=== PATIENT | female | born 1945 | race Caucasian/White ===

== ENCOUNTER → 2018-08-30 | Outpatient (CLI) | payer MEDICARE, OTHER ==
--- NOTE | 2018-08-30 14:42 | XR ---
EXAMINATION TYPE: XR chest 2V DATE OF EXAM: 08/30/2018 COMPARISON: Prior chest x-ray 12/07/2017 HISTORY: Shortness of breath, history of lung nodule, colon carcinoma TECHNIQUE: Frontal and lateral views of the chest are obtained. FINDINGS: Prominent lung volumes with lucency at the apices suggest underlying COPD, possible emphys mer. Right-sided Port-A-Cath is present with the right jugular approach with the distal tip overlying superior vena cava. There is a gentle spinal curvature present. No evident pneumothorax or pleural e ffusion. Cardiac mediastinal silhouette, pulmonary vascularity and nelida are stable. Lung nodule super imposed over the spine on the lateral view is noted measuring approximately 2.4 cm not seen definitiv ling on prior exam. Suspect coronary artery calcifications are present. There is osteopenia. Interstit ial changes are present at the lung bases. IMPRESSION: Indeterminate lung nodule, CT chest could be performed for additional evaluation. Suspec t underlying COPD, coronary artery disease. Additional findings above.
== END | disposition home or self-care (01) ==
LOC: RADXRMAIN 13:07
PROVIDERS: ATTEND Internal Medicine Hematology & Oncology
DX: R91.8 Other nonspecific abnormal finding of lung field (principal); C18.2 Malignant neoplasm of ascending colon; G62.0 Drug-induced polyneuropathy; D64.81 Anemia due to antineoplastic chemotherapy
CPT/HCPCS: 71046

== ENCOUNTER 2019-04-04 09:08 | Inpatient (IN) | payer MEDICARE, OTHER ==
[2019-04-04] MEDS ORDERED: SODIUM CHLORIDE 0.9% 1,000 ML IV STA ×2 (09:54)
--- NOTE | 2019-04-04 09:58 | ED ---
Weakness HPI - General Chief complaint: Weakness Stated complaint: nausea, weakness Time Seen by Provider: 04/04/19 09:33 Source: patient, family, RN notes reviewed Mode of arrival: wheelchair Limitations: no limitations - History of Present Illness Initial comments: This is a 73-year-old female with a history of cancer who is on oral chemotherapy who also has a history of bowel resection with diarrhea who presents with complains of generalized weakness and started or days ago during a trip to [place] CPR did not eat or drink very much that she would have diarrhea she is still having diarrhea 2 brought here because of some weakness and some disorientation this morning. Difficulty walking also. No reports of fevers chills sweats when nausea or vomiting just the diarrhea also she does complain of generalized weakness she was noted upon arrival he was blood pressure 70/47. She reports no headaches or chest pain. MD Complaint: generalized weakness - Related Data Home Medications Medication Instructions Recorded Confirmed Capecitabine [Xeloda] 1,500 mg PO DIRECTED 04/04/19 04/04/19 Diphenox-Atrop 2.5-0.025 mg 1 tab PO QID PRN 04/04/19 04/04/19 [Lomotil] Lidocaine-Prilocaine Cream [Emla 1 applic TOPICAL DIRECTED PRN 04/04/19 04/04/19 Cream 2.5%/2.5%] Lisinopril 40 mg PO DAILY 04/04/19 04/04/19 Prochlorperazine [Compazine] 10 mg PO Q6H PRN 04/04/19 04/04/19 carBAMazepine [TEGretol] 200 mg PO TID 04/04/19 04/04/19 levETIRAcetam [Keppra] 250 mg PO BID 04/04/19 04/04/19 levETIRAcetam [Keppra] 500 mg PO BID 04/04/19 04/04/19 Allergies Allergy/AdvReac Type Severity Reaction Status Date / Time No Known Allergies Allergy Verified 04/04/19 09:55 Review of Systems ROS Statement: Those systems with pertinent positive or pertinent negative responses have been documented in the HPI. ROS Other: All systems not noted in ROS Statement are negative. 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 History of Any Multi-Drug Resistant Organisms: None Reported Past Surgical History: Bowel Resection, Cholecystectomy Past Psychological History: Depression Smoking Status: Former smoker Past Alcohol Use History: None Reported Past Drug Use History: None Reported General Exam - General Exam Comments Initial Comments: This is a well-developed sec appearing female who is awake alert oriented 3 per family she is of normal coloration Limitations: no limitations General appearance: alert, in no apparent distress Head exam: Present: atraumatic, normocephalic, normal inspection Eye exam: Present: normal appearance, PERRL, EOMI. Absent: scleral icterus, conjunctival injection, periorbital swelling ENT exam: Present: mucous membranes dry Neck exam: Present: normal inspection, full ROM, other (No stridor JVD or bruits). Absent: tenderness, meningismus, lymphadenopathy Respiratory exam: Present: normal lung sounds bilaterally. Absent: respiratory distress, wheezes, rales, rhonchi, stridor Cardiovascular Exam: Present: normal rhythm, tachycardia, normal heart sounds. Absent: systolic murmur, diastolic murmur, rubs, gallop, clicks GI/Abdominal exam: Present: soft, normal bowel sounds. Absent: distended, tend erness, guarding, rebound, rigid Extremities exam: Present: normal inspection, full ROM, normal capillary refill. Absent: tenderness, pedal edema, joint swelling, calf tenderness Back exam: Present: normal inspection Neurological exam: Present: alert, oriented X3, CN II-XII intact Psychiatric exam: Present: normal affect, normal mood Skin exam: Present: warm, dry, intact, normal color. Absent: rash Course Vital Signs 04/04/19 04/04/19 04/04/19 09:09 09:25 09:30 Temperature 97.6 F Pulse Rate 111 H 94 Pulse Rate [ Sitting] Pulse Rate [ Standing] Pulse Rate [ Supine] Respiratory 16 18 Rate Blood Pressure 42/34 95/76 Blood Pressure [Sitting] Blood Pressure [Standing] Blood Pressure [Supine] O2 Sat by Pulse 95 96 96 Oximetry 04/04/19 04/04/19 04/04/19 09:37 09:48 10:00 Temperature Pulse Rate 77 75 75 Pulse Rate [ Sitting] Pulse Rate [ Standing] Pulse Rate [ Supine] Respiratory 16 20 18 Rate Blood Pressure 78/47 88/28 98/49 Blood Pressure [Sitting] Blood Pressure [Standing] Blood Pressure [Supine] O2 Sat by Pulse 96 96 96 Oximetry 04/04/19 04/04/19 04/04/19 10:01 10:30 11:00 Temperature Pulse Rate 75 75 Pulse Rate [ Sitting] Pulse Rate [ Standing] Pulse Rate [ Supine] Respiratory 18 18 Rate Blood Pressure 88/46 101/44 94/48 Blood Pressure [Sitting] Blood Pressure [Standing] Blood Pressure [Supine] O2 Sat by Pulse 96 96 Oximetry 04/04/19 04/04/19 04/04/19 12:00 12:15 12:21 Temperature Pulse Rate 76 79 Pulse Rate [ 84 Sitting] Pulse Rate [ 102 H Standing] Pulse Rate [ 77 Supine] Respiratory 22 20 20 Rate Blood Pressure 86/40 101/47 Blood Pressure 90/50 [Sitting] Blood Pressure 83/28 [Standing] Blood Pressure 102/51 [Supine] O2 Sat by Pulse 97 97 Oximetry 04/04/19 04/04/19 12:45 13:15 Temperature Pulse Rate 83 88 Pulse Rate [ Sitting] Pulse Rate [ Standing] Pulse Rate [ Supine] Respiratory 20 20 Rate Blood Pressure 92/54 83/40 Blood Pressure [Sitting] Blood Pressure [Standing] Blood Pressure [Supine] O2 Sat by Pulse 99 96 Oximetry - Reevaluation(s) Reevaluation #1: 04/04/19 13:41 I did reevaluate the patient multiple occasions she is feeling improved after IV hydration she did however did not tolerate orthostatic testing very well he was later found to have urinary tract infection she will be admitted I did discuss the case the patient and with her family members were present. Patient is admitted to Dr. Champion. Medical Decision Making - Lab Data Result diagrams: 04/04/19 09:35 04/04/19 09:35 Lab Results 04/04/19 04/04/19 04/04/19 Range/Units 09:35 09:35 09:35 WBC 6.3 (3.8-10.6) k/uL RBC 4.13 (3.80-5.40) m/uL Hgb 13.5 (11.4-16.0) gm/dL Hct 41.5 (34.0-46.0) % MCV 100.5 H (80.0-100.0) fL MCH 32.6 (25.0-35.0) pg MCHC 32.4 (31.0-37.0) g/dL RDW 16.2 H (11.5-15.5) % Plt Count 145 L (150-450) k/uL Neutrophils % (Manual) 41 % Band Neutrophils % 10 % Lymphocytes % (Manual) 30 % Monocytes % (Manual) 18 % Metamyelocytes % 1 % Neutrophils # (Manual) 3.20 (1.3-7.7) k/uL Lymphocytes # (Manual) 1.89 (1.0-4.8) k/uL Monocytes # (Manual) 1.13 H (0-1.0) k/uL Metamyelocytes # (Man) 0.06 H (0) k/uL Nucleated RBCs 0 (0-0) /100 WBC Differential Comment Manual Slide Review Performed Anisocytosis Slight Macrocytosis Slight Ovalocytes Present Sodium 141 (137-145) mmol/L Potassium 3.8 (3.5-5.1) mmol/L Chloride 115 H (98-107) mmol/L Carbon Dioxide 12 L (22-30) mmol/L Anion Gap 14 mmol/L BUN 58 H (7-17) mg/dL Creatinine 1.85 H (0.52-1.04) mg/dL Est GFR (CKD-EPI)AfAm 31 (>60 ml/min/1.73 sqM) Est GFR (CKD-EPI)NonAf 27 (>60 ml/min/1.73 sqM) Glucose 177 H (74-99) mg/dL Lactic Ac Sepsis Rflx Plasma Lactic Acid Sven 2.6 H* (0.7-2.0) mmol/L Calcium 9.0 (8.4-10.2) mg/dL Magnesium 1.8 (1.6-2.3) mg/dL Total Bilirubin 0.6 (0.2-1.3) mg/dL AST 73 H (14-36) U/L ALT 53 H (9-52) U/L Alkaline Phosphatase 95 (38-126) U/L Creatine Kinase 35 (30-135) U/L Total Protein 6.3 (6.3-8.2) g/dL Albumin 3.8 (3.5-5.0) g/dL Lipase 57 (23-300) U/L Urine Color Urine Appearance (Clear) Urine pH (5.0-8.0) Ur Specific [place] (1.001-1.035) Urine Protein (Negative) Urine Glucose (UA) (Negative) Urine Ketones (Negative) Urine Blood (Negative) Urine Nitrite (Negative) Urine Bilirubin (Negative) Urine Urobilinogen (<2.0) mg/dL Ur Leukocyte Esterase (Negative) Urine WBC (0-5) /hpf Urine WBC Clumps (None) /hpf Amorphous Sediment (None) /hpf Urine Bacteria (None) /hpf Urine Mucus (None) /hpf 04/04/19 04/04/19 Range/Units 09:35 10:31 WBC (3.8-10.6) k/uL RBC (3.80-5.40) m/uL Hgb (11.4-16.0) gm/dL Hct (34.0-46.0) % MCV (80.0-100.0) fL MCH (25.0-35.0) pg MCHC (31.0-37.0) g/dL RDW (11.5-15.5) % Plt Count (150-450) k/uL Neutrophils % (Manual) % Band Neutrophils % % Lymphocytes % (Manual) % Monocytes % (Manual) % Metamyelocytes % % Neutrophils # (Manual) (1.3-7.7) k/uL Lymphocytes # (Manual) (1.0-4.8) k/uL Monocytes # (Manual) (0-1.0) k/uL Metamyelocytes # (Man) (0) k/uL Nucleated RBCs (0-0) /100 WBC Differential Comment Manual Slide Review Anisocytosis Macrocytosis Ovalocytes Sodium (137-145) mmol/L Potassium (3.5-5.1) mmol/L Chloride (98-107) mmol/L Carbon Dioxide (22-30) mmol/L Anion Gap mmol/L BUN (7-17) mg/dL Creatinine (0.52-1.04) mg/dL Est GFR (CKD-EPI)AfAm (>60 ml/min/1.73 sqM) Est GFR (CKD-EPI)NonAf (>60 ml/min/1.73 sqM) Glucose (74-99) mg/dL Lactic Ac Sepsis Rflx Y Plasma Lactic Acid Sven (0.7-2.0) mmol/L Calcium (8.4-10.2) mg/dL Magnesium (1.6-2.3) mg/dL Total Bilirubin (0.2-1.3) mg/dL AST (14-36) U/L ALT (9-52) U/L Alkaline Phosphatase (38-126) U/L Creatine Kinase (30-135) U/L Total Protein (6.3-8.2) g/dL Albumin (3.5-5.0) g/dL Lipase (23-300) U/L Urine Color Yellow Urine Appearance Cloudy H (Clear) Urine pH 5.5 (5.0-8.0) Ur Specific [place] 1.016 (1.001-1.035) Urine Protein 1+ H (Negative) Urine Glucose (UA) Negative (Negative) Urine Ketones Negative (Negative) Urine Blood Negative (Negative) Urine Nitrite Positive H (Negative) Urine Bilirubin Negative (Negative) Urine Urobilinogen <2.0 (<2.0) mg/dL Ur Leukocyte Esterase Moderate H (Negative) Urine WBC 12 H (0-5) /hpf Urine WBC Clumps Occasional H (None) /hpf Amorphous Sediment Occasional H (None) /hpf Urine Bacteria Moderate H (None) /hpf Urine Mucus Rare H (None) /hpf Disposition Clinical Impression: Urinary tract infection, Dehydration, Hypotensive episode, Chronic diarrhea Disposition: ADMITTED IP TO THIS HOSP Condition: Fair Referrals: Rama Muñiz MD [Primary Care Provider] - 1-2 days
[2019-04-04 10:26] LABS: Albumin 3.8 g/dL (3.5-5.0); Magnesium 1.8 mg/dL (1.6-2.3); Potassium 3.8 mmol/L (3.5-5.1); Total Bilirubin 0.6 mg/dL (0.2-1.3); Total Protein 6.3 g/dL (6.3-8.2)
[2019-04-04 10:37] LABS: Anisocytosis Slight; HCT 41.5 % (34.0-46.0); HGB 13.5 gm/dL (11.4-16.0); MCH 32.6 pg (25.0-35.0); MCHC 32.4 g/dL (31.0-37.0); MCV 100.5 fL (80.0-100.0); Macrocytosis Slight; Mean Platelet Volume 7.5; Platelet Count 145 k/uL (150-450); RBC 4.13 m/uL (3.80-5.40); RDW 16.2 % (11.5-15.5); WBC 6.3 k/uL (3.8-10.6)
[2019-04-04 10:45] LABS: Amorphous Sediment,Urine Occasional /hpf; Appearance,Urine Cloudy (Clear); Bacteria,Urine Moderate /hpf; Bilirubin,Urine Negative (Negative); Blood,Urine Negative (Negative); Color,Urine Yellow; Glucose,Urine (UA) Negative (Negative); Ketones,Urine Negative (Negative); Leukocyte Esterase,Urine Moderate (Negative); Mucus,Urine Rare /hpf; Nitrite,Urine Positive (Negative); PH, Urine 5.5 (5.0-8.0); Protein,Urine 1+ (Negative); Specific Gravity,Urine 1.016 (1.001-1.035); Urobilinogen,Urine <2.0 mg/dL (<2.0)
[2019-04-04] MEDS ORDERED: SODIUM CHLORIDE 0.9% 500 ML 500 ML IV STA ×2 (10:53→14:00)
--- NOTE | 2019-04-04 10:57 | CT ---
EXAMINATION TYPE: CT brain wo con DATE OF EXAM: 04/04/2019 COMPARISON: None HISTORY: 73-year-old female Weakness and confusion TECHNIQUE: Examination was done in axial plane without intravenous contrast. Coronal and sagittal r econstructions performed. CT DLP: 1113.4 mGycm Automated exposure control for dose reduction was used. FINDINGS: There is no evidence of acute intracranial hemorrhage, acute ischemic changes, mass, mass-effect, or extra-axial fluid collection. There is no effacement of cerebral sulci or basal subarachnoid cister ns. There is no hydrocephalus. There is no midline shift. Ogden-white matter distinction is preserv ed. Mild generalized supratentorial volume loss some preferential cortical atrophy on the left of uncerta in clinical significance. Benign basal ganglionic calcifications. Some trapped fluid in the inferior right mastoid air cells. Trace mucosal thickening ethmoid air cell s. Orbits and globes appear intact. IMPRESSION: 1. Mild generalized atrophy. No acute intracranial abnormality seen. 2. Some trapped fluid in the right mastoid air cells. Correlate for any mastoid pain to exclude masto iditis.
--- NOTE | 2019-04-04 11:01 | XR ---
EXAMINATION TYPE: XR chest 2V DATE OF EXAM: 04/04/2019 COMPARISON: 08/30/2018 HISTORY: 73-year-old female dizziness, cough, shortness of breath TECHNIQUE: AP and lateral views FINDINGS: Right anterior chest wall injection port with catheter tip at the mid SVC. Heart normal size. Hyperin flation with flattening of the hemidiaphragms. No consolidation or pleural effusion seen. IMPRESSION: COPD and borderline heart size. No definite acute process.
[2019-04-04 11:16] LABS: Band Neutrophils % 10 %; Lymphocytes # (M) 1.89 k/uL (1.0-4.8); Metamyelocytes # (M) 0.06 k/uL (0); Metamyelocytes % 1 %; Monocytes # (M) 1.13 k/uL (0-1.0); Neutrophils % (M) 41 %; Nucleated Red Blood Cells 0 /100 WBC (0-0); Total Cells Counted 100
[2019-04-04 11:19] LABS: Ovalocytes Present
[2019-04-04] MEDS ORDERED: cefTRIAXone IN SWFI 1,000 MG/10 ML SYRINGE IVP STA (12:58)
[2019-04-04] MEDS ORDERED: SODIUM CHLORIDE 0.9% 500 ML 500 ML IV ONE (13:20)
[2019-04-04] MEDS ORDERED: NALOXONE 0.4 MG/ML 1 ML VIAL IV PRN (13:44)
[2019-04-04] MEDS ORDERED: DIPHENOX-ATROP 2.5-0.025 MG 1 EACH TAB PO PRN (13:46)
[2019-04-04] MEDS ORDERED: LIDOCAINE-PRILOCAINE 2.5-2.5% CREAM 5 GM TUBE TOPICAL PRN (13:46)
[2019-04-04] MEDS ORDERED: PROCHLORPERAZINE 10 MG TAB PO PRN (13:46)
[2019-04-04] MEDS ORDERED: CAPECITABINE PO SCH (14:00)
--- NOTE | 2019-04-04 15:59 | P.HPIM ---
History of Present Illness 73-year-old pleasant female with history of colon cancer is receiving chemotherapy and patient is presently on Xeloda has multiple episodes of diarrhea which is normal for her which is much worse for last couple days secondary to mucositis and came in quite a bit dehydrated. Patient is feeling quite weak because of dehydration patient denied any UTI-like symptoms including dysuria superpubic pain patient doesn't have any fever doesn't have any leukocytosis. Urine is bit abnormal because of which patient was given a dose of Rocephin which will discuss reviewed as patient probably has a symptomatically bacteriuria patient is quite a bit dehydrated leading to lactic acidosis rather than urinary tract infection blood pressure is quite low at with a systolic blood pressure of 90s patient was given IV bolus fluids and patient will be can you done IV fluids at 100 mL/h as patient is thin built and only 1 use 100 mL/h rather than 125 1 50 mL/h. Patient does have acidosis metabolic secondary to hyperchloremia as well as lactic Acidosis hyperchloremia can get bit worse because of IV fluids. We will also obtain C. diff but the suspicion for C. diff is extremely low because of which are good and continue Lomotil at this time. Because of low blood pressure and acute renal failure all hold off on lisinopril. Patient's creatinine is 1.85 baseline is around 0.7. Review of Systems REVIEW OF SYSTEMS: CONSTITUTIONAL: As mentioned in HPI HEENT: No recent visual problems or hearing problems. Denied any sore throat. CARDIOVASCULAR: No chest pain, orthopnea, PND, no palpitations, no syncope. PULMONARY: No shortness of breath, no cough, no hemoptysis. GASTROINTESTINAL: No diarrhea, no nausea, no vomiting, no abdominal pain. NEUROLOGICAL: No headaches, no weakness, no numbness. HEMATOLOGICAL: Denies any bleeding or petechiae. GENITOURINARY: Denies any burning micturition, frequency, or urgency. MUSCULOSKELETAL/RHEUMATOLOGICAL: Denies any joint pain, swelling, or any muscle pain. ENDOCRINE: Denies any polyuria or polydipsia. The rest of the 14-point review of systems is negative. 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 History of Any Multi-Drug Resistant Organisms: None Reported Past Surgical History: Bowel Resection, Cholecystectomy Past Psychological History: Depression Smoking Status: Former smoker Past Alcohol Use History: None Reported Past Drug Use History: None Reported Medications and Allergies Home Medications Medication Instructions Recorded Confirmed Type Capecitabine [Xeloda] 1,500 mg PO DIRECTED 04/04/19 04/04/19 History Diphenox-Atrop 2.5-0.025 mg 1 tab PO QID PRN 04/04/19 04/04/19 History [Lomotil] Lidocaine-Prilocaine Cream [Emla 1 applic TOPICAL DIRECTED PRN 04/04/19 04/04/19 History Cream 2.5%/2.5%] Lisinopril 40 mg PO DAILY 04/04/19 04/04/19 History Prochlorperazine [Compazine] 10 mg PO Q6H PRN 04/04/19 04/04/19 History carBAMazepine [TEGretol] 200 mg PO TID 04/04/19 04/04/19 History levETIRAcetam [Keppra] 250 mg PO BID 04/04/19 04/04/19 History levETIRAcetam [Keppra] 500 mg PO BID 04/04/19 04/04/19 History Allergies Allergy/AdvReac Type Severity Reaction Status Date / Time No Known Allergies Allergy Verified 04/04/19 09:55 Physical Exam Vitals: Vital Signs Temp Pulse Pulse Pulse Pulse Resp BP 04/04/19 14:00 89 20 98/49 04/04/19 13:15 88 20 83/40 04/04/19 12:45 83 20 92/54 04/04/19 12:21 84 102 H 77 20 04/04/19 12:15 79 20 101/47 04/04/19 12:00 76 22 86/40 04/04/19 11:00 75 18 94/48 04/04/19 10:30 101/44 04/04/19 10:01 75 18 88/46 04/04/19 10:00 75 18 98/49 04/04/19 09:48 75 20 88/28 04/04/19 09:37 77 16 78/47 04/04/19 09:30 94 18 95/76 04/04/19 09:25 04/04/19 09:09 97.6 F 111 H 16 42/34 BP BP BP Pulse Ox 04/04/19 14:00 99 04/04/19 13:15 96 04/04/19 12:45 99 04/04/19 12:21 90/50 83/28 102/51 04/04/19 12:15 97 04/04/19 12:00 97 04/04/19 11:00 96 04/04/19 10:30 04/04/19 10:01 96 04/04/19 10:00 96 04/04/19 09:48 96 04/04/19 09:37 96 04/04/19 09:30 96 04/04/19 09:25 96 04/04/19 09:09 95 Intake and Output 04/04/19 04/04/19 04/04/19 06:59 14:59 22:59 Other: Weight 45.359 kg PHYSICAL EXAMINATION: GENERAL: The patient is alert and oriented x3, not in any acute distress. Thin built HEENT: Pupils are round and equally reacting to light. EOMI. No scleral icterus. No conjunctival pallor. Normocephalic, atraumatic. No pharyngeal erythema. No thyromegaly. CARDIOVASCULAR: S1 and S2 present. No murmurs, rubs, or gallops. PULMONARY: Chest is clear to auscultation, no wheezing or crackles. ABDOMEN: Soft, nontender, nondistended, normoactive bowel sounds. No palpable organomegaly. MUSCULOSKELETAL: No joint swelling or deformity. EXTREMITIES: No cyanosis, clubbing, or pedal edema. NEUROLOGICAL: Gross neurological examination did not reveal any focal deficits. SKIN: No rashes. Results CBC & Chem 7: 04/04/19 09:35 04/04/19 09:35 Labs: Abnormal Lab Results - Last 24 Hours (Table) 04/04/19 04/04/19 04/04/19 Range/Units 09:35 09:35 09:35 MCV 100.5 H (80.0-100.0) fL RDW 16.2 H (11.5-15.5) % Plt Count 145 L (150-450) k/uL Monocytes # (Manual) 1.13 H (0-1.0) k/uL Metamyelocytes # (Man) 0.06 H (0) k/uL Chloride 115 H (98-107) mmol/L Carbon Dioxide 12 L (22-30) mmol/L BUN 58 H (7-17) mg/dL Creatinine 1.85 H (0.52-1.04) mg/dL Glucose 177 H (74-99) mg/dL Plasma Lactic Acid Sven 2.6 H* (0.7-2.0) mmol/L AST 73 H (14-36) U/L ALT 53 H (9-52) U/L Urine Appearance (Clear) Urine Protein (Negative) Urine Nitrite (Negative) Ur Leukocyte Esterase (Negative) Urine WBC (0-5) /hpf Urine WBC Clumps (None) /hpf Amorphous Sediment (None) /hpf Urine Bacteria (None) /hpf Urine Mucus (None) /hpf 04/04/19 Range/Units 09:35 MCV (80.0-100.0) fL RDW (11.5-15.5) % Plt Count (150-450) k/uL Monocytes # (Manual) (0-1.0) k/uL Metamyelocytes # (Man) (0) k/uL Chloride (98-107) mmol/L Carbon Dioxide (22-30) mmol/L BUN (7-17) mg/dL Creatinine (0.52-1.04) mg/dL Glucose (74-99) mg/dL Plasma Lactic Acid Sven (0.7-2.0) mmol/L AST (14-36) U/L ALT (9-52) U/L Urine Appearance Cloudy H (Clear) Urine Protein 1+ H (Negative) Urine Nitrite Positive H (Negative) Ur Leukocyte Esterase Moderate H (Negative) Urine WBC 12 H (0-5) /hpf Urine WBC Clumps Occasional H (None) /hpf Amorphous Sediment Occasional H (None) /hpf Urine Bacteria Moderate H (None) /hpf Urine Mucus Rare H (None) /hpf Microbiology - Last 24 Hours (Table) 04/04/19 09:35 Urine Culture - Preliminary Urine,Voided Assessment and Plan Plan: -Generalized weakness: Probably secondary to dehydration, patient will be continued on IV fluids as mentioned above -Diarrhea: Multiple episodes secondary to chemotherapy and mucositis from chemotherapy, continue with IV fluids. Symptomatic treatment for diarrhea w with the Lomotil rule out C. diff -Acute renal failure. Prerenal azotemia from diarrhea, IV fluids as mentioned above. -Anion gap and non-anion gap metabolic acidosis secondary to lactic acidosis which is again secondary to severe intravascular volume depletion and due to hyperchloremia which is expected to get bit worse because of IV fluids -Asymptomatic bacteriuria: Patient will not require any antibiotics in spite of urine cultures being positive patient does not have any symptoms of UTI patient is not in a suppressed at this time. -Colon cancer receiving chemotherapy -Seizure disorder for which patient will be resumed on her antiseizure medications -Depression -severe hypotension: Secondary to volume depletion patient is not in shock at this time -DVT prophylaxis: Early ambulation, will need a GI prophylaxis with Pepcid
[2019-04-04 20:09] VITALS: BMI 18.3
[2019-04-04] MEDS: SODIUM CHLORIDE 0.9% 1,000 ML IV SCH (20:47)
[2019-04-04] MEDS: carBAMazepine 200 MG TAB PO SCH ×2 (20:47→23:05)
[2019-04-04] MEDS: levETIRAcetam 500 MG TAB PO SCH (23:05)
[2019-04-04] MEDS: levETIRAcetam 250 MG TAB PO SCH (23:06)
[2019-04-05] MEDS: SODIUM CHLORIDE 0.9% 1,000 ML IV SCH ×2 (03:48→20:33)
[2019-04-05 05:28] LABS: Anisocytosis Slight; HCT 28.5 % (34.0-46.0); MCH 33.4 pg (25.0-35.0); MCV 98.4 fL (80.0-100.0); Macrocytosis Slight; Mean Platelet Volume 7.6; Platelet Count 106 k/uL (150-450); RDW 18.2 % (11.5-15.5); WBC 3.3 k/uL (3.8-10.6)
[2019-04-05 05:39] LABS: Albumin 2.4 g/dL (3.5-5.0); Calcium 7.5 mg/dL (8.4-10.2); Total Bilirubin 0.2 mg/dL (0.2-1.3); Total Protein 4.6 g/dL (6.3-8.2)
[2019-04-05 05:44] LABS: HGB 9.7 gm/dL (11.4-16.0)
[2019-04-05 06:00] LABS: Potassium 2.7 mmol/L (3.5-5.1)
[2019-04-05] MEDS ORDERED: Potassium Replacement Protocol 1 EACH MISC MISCELLANE PRN (06:40)
[2019-04-05] MEDS: POTASSIUM CHLORIDE ER 20 MEQ TAB.ER PO SCH ×3 (08:19→10:56)
[2019-04-05] MEDS: carBAMazepine 200 MG TAB PO SCH ×3 (08:20→23:34)
[2019-04-05] MEDS: levETIRAcetam 500 MG TAB PO SCH ×2 (08:20→20:37)
[2019-04-05] MEDS: levETIRAcetam 250 MG TAB PO SCH ×2 (08:20→20:37)
[2019-04-05] MEDS ORDERED: cefTRIAXone IN SWFI 1,000 MG/10 ML SYRINGE IVP SCH (09:00)
[2019-04-05] MEDS ORDERED: LISINOPRIL 20 MG TAB PO SCH (09:00)
[2019-04-05] MEDS ORDERED: POTASSIUM CHLORIDE ER 20 MEQ TAB.ER PO STA (12:59)
--- NOTE | 2019-04-05 15:03 | P.PN ---
Subjective 73-year-old on oral chemotherapy for colon cancer came in with mucositis related diarrhea which improved at this time and severe dehydration secondary to that and lactic acidosis secondary to that. Incidentally patient presently is found to have blood cultures that are positive for gram-positive cocci in clusters most probably contamination. Urine is positive for gram-negative bacilli but patient has asymptomatic bacteriuria patient will not require any antibiotics for that. Considering bacteremia patient will lot be discharged today patient will be started on IV vancomycin with repeat blood cultures today and tomorrow. If patient has coagulase-negative staph then patient can be discharged tomorrow without any antibiotics. Patient had one episode of diarrhea Constitutional: Denied any fatigue denied any fever. Cardio vascular: denied any chest pain, palpitations Gastrointestinal denied any nausea vomiting Pulmonary: Denied any shortness of breath cough Neurologic denied any new focal deficits All inpatient medications were reviewed and appropriate changes in these medications as dictated in the interval history and assessment and plan. Objective - Vital Signs Vital signs: Vital Signs Temp 97.5 F L 04/05/19 14:03 Pulse 79 04/05/19 14:03 Resp 16 04/05/19 14:03 BP 122/73 04/05/19 14:03 Pulse Ox 100 04/05/19 14:03 Intake & Output 04/04/19 04/05/19 04/05/19 18:59 06:59 18:59 Intake Total 10 Balance 10 Weight 45.359 kg Intake: Oral 10 Other: # Voids 1 1 # Bowel Movements 1 - Exam PHYSICAL EXAMINATION: GENERAL: The patient is alert and oriented x3, not in any acute distress. Well developed, well nourished. HEENT: Pupils are round and equally reacting to light. EOMI. No scleral icterus. No conjunctival pallor. Normocephalic, atraumatic. No pharyngeal erythema. No thyromegaly. CARDIOVASCULAR: S1 and S2 present. No murmurs, rubs, or gallops. PULMONARY: Chest is clear to auscultation, no wheezing or crackles. ABDOMEN: Soft, nontender, nondistended, normoactive bowel sounds. No palpable organomegaly. MUSCULOSKELETAL: No joint swelling or deformity. EXTREMITIES: No cyanosis, clubbing, or pedal edema. NEUROLOGICAL: Gross neurological examination did not reveal any focal deficits. SKIN: No rashes. - Labs CBC & Chem 7: 04/05/19 05:20 04/05/19 05:20 Labs: Abnormal Lab Results - Last 24 Hours (Table) 04/04/19 04/05/19 04/05/19 Range/Units 14:39 05:20 05:20 WBC 3.3 L (3.8-10.6) k/uL RBC 2.90 L (3.80-5.40) m/uL Hgb 9.7 L D (11.4-16.0) gm/dL Hct 28.5 L (34.0-46.0) % RDW 18.2 H (11.5-15.5) % Plt Count 106 L (150-450) k/uL Sodium 147 H (137-145) mmol/L Potassium 2.7 L* (3.5-5.1) mmol/L Chloride 125 H (98-107) mmol/L Carbon Dioxide 14 L (22-30) mmol/L BUN 37 H (7-17) mg/dL Glucose 106 H (74-99) mg/dL Plasma Lactic Acid Sven 2.2 H* (0.7-2.0) mmol/L Calcium 7.5 L (8.4-10.2) mg/dL AST 51 H (14-36) U/L ALT 61 H (9-52) U/L Total Protein 4.6 L (6.3-8.2) g/dL Albumin 2.4 L (3.5-5.0) g/dL Microbiology - Last 24 Hours (Table) 04/04/19 09:35 Urine Culture - Preliminary Urine,Voided Gram Neg Bacilli 04/04/19 13:20 Blood Culture - Final Blood 04/04/19 13:20 Blood Culture Gram Stain - Preliminary Blood 04/04/19 09:35 Blood Culture - Preliminary Blood No Growth after 24 hours Assessment and Plan Plan: -Generalized weakness: Probably secondary to dehydration, patient will be continued on IV fluids as mentioned above, patient will be switched to half- normal saline secondary to hyperchloremia -Bacteremia with gram-positive cocci in clusters, repeat blood cultures and vancomycin as mentioned above -Diarrhea: Multiple episodes secondary to chemotherapy and mucositis from chemotherapy, continue with IV fluids. Symptomatic treatment for diarrhea w with the Lomotil, rule out C. diff -Acute renal failure. Prerenal azotemia from diarrhea, IV fluids as mentioned above. Improved his serum creatinine to 0.9 -Anion gap and non-anion gap metabolic acidosis secondary to lactic acidosis which is again secondary to severe intravascular volume depletion and due to hyperchloremia which is expected to get bit worse because of IV fluids -Asymptomatic bacteriuria: Patient will not require any antibiotics in spite of urine cultures being positive patient does not have any symptoms of UTI patient is not in a suppressed at this time. -Colon cancer receiving chemotherapy -Seizure disorder for which patient will be resumed on her antiseizure medications -Depression -severe hypotension: Secondary to volume depletion patient is not in shock at this time, holding off on lisinopril patient probably will not require less febrile upon discharge -DVT prophylaxis: Early ambulation, will need a GI prophylaxis with Pepcid
[2019-04-05] MEDS ORDERED: VANCOMYCIN IV PER PHARMACY 1 EACH MISC MISCELLANE PRN (15:05)
[2019-04-05] MEDS: VANCOMYCIN 1,000 MG in SODIUM CHLORIDE 0.9% 250 ML IVPB SCH (15:53)
[2019-04-05] MEDS: SODIUM CHLORIDE 0.45% 1,000 ML IV SCH (15:53)
[2019-04-06] MEDS: SODIUM CHLORIDE 0.45% 1,000 ML IV SCH (05:36)
[2019-04-06 07:16] VITALS: BP 138/79; RESP 16; TEMP 98
[2019-04-06 08:41] VITALS: PULSE 89
[2019-04-06 09:02] LABS: Anisocytosis Slight; HCT 34.7 % (34.0-46.0); Hypochromasia Slight; MCH 32.4 pg (25.0-35.0); MCHC 31.6 g/dL (31.0-37.0); MCV 102.5 fL (80.0-100.0); Macrocytosis Moderate; Mean Platelet Volume 7.4; Platelet Count 131 k/uL (150-450); RBC 3.39 m/uL (3.80-5.40); RDW 16.6 % (11.5-15.5); WBC 3.7 k/uL (3.8-10.6)
[2019-04-06 09:27] LABS: Calcium 8.3 mg/dL (8.4-10.2); Potassium 3.1 mmol/L (3.5-5.1)
[2019-04-06] MEDS: VANCOMYCIN 1,000 MG in SODIUM CHLORIDE 0.9% 250 ML IVPB SCH (10:03)
[2019-04-06] MEDS: levETIRAcetam 500 MG TAB PO SCH (10:04)
[2019-04-06] MEDS: levETIRAcetam 250 MG TAB PO SCH (10:04)
[2019-04-06] MEDS: carBAMazepine 200 MG TAB PO SCH (10:05)
[2019-04-06] MEDS ORDERED: POTASSIUM CHLORIDE ER 20 MEQ TAB.ER PO SCH (11:00)
[2019-04-06 11:21] LABS: Band Neutrophils % 3 %; Eosinophils # (M) 0.15 k/uL (0-0.7); Lymphocytes # (M) 1.33 k/uL (1.0-4.8); Monocytes # (M) 0.44 k/uL (0-1.0); Neutrophils % (M) 45 %; Nucleated Red Blood Cells 0 /100 WBC (0-0); Poikilocytosis (M) Present; Total Cells Counted 100
--- NOTE | 2019-04-06 15:44 | P.DS ---
Providers Date of admission: 04/04/19 13:44 Expected date of discharge: 04/06/19 Attending physician: Poonam Champion Primary care physician: Rama Mary Kay [facility] Course: Final diagnosis Generalized weakness Hypotension Diarrhea Acute renal failure anion gap and non-anion gap metabolic acidosis Lactic acidosis Asymptomatic bacteriuria History of colon cancer, currently on chemotherapy History of seizure disorder History of depression Discharge disposition The patient is being discharged in a stable condition with guarded prognosis to home. Daughter is at the bedside and agrees with the plan. Patient will follow up with primary care provider this week. Total time taken is 30 minutes History of present illness This is a 73-year-old female who was recently admitted for severe dehydration and lactic acidosis. Blood cultures initially were positive most probably contaminated as they resulted showing coagulase-negative staph. Blood cultures were redrawn and sent and are currently still pending at this time. Urine cult ure was positive for gram-negative bacilli. Patient is asymptomatic of any urinary symptoms at this time and will not go home on antibiotics. Blood culture and urine culture results were discussed in length with patient and daughter at the bedside. Lisinopril was adjusted and decreased to 10 mg daily due to periods of hypotension. Discussed at length about keeping a diary of blood pressure readings for follow-up appointments in obtaining a blood pressure cuff for at home readings. Patient verbalized understanding and agrees with the plan. Patient denies any shortness of breath, chest pain, palpitations, nausea, vomiting, or diarrhea at this time and is looking forward to going home. On exam vital signs are stable. Cardio S1 and S2 are normal. Respiratory is clear to auscultation with no wheezing or crackles noted. Abdomen is soft and non-tender. Nervous system shows no new focal deficits and gait is steady. Please refer to the medication reconciliation sheet for list of medications Patient Condition at Discharge: Fair Plan - Discharge Summary New Discharge Prescriptions: New Lisinopril [Prinivil] 10 mg PO DAILY 30 Days #30 tab Continue Prochlorperazine [Compazine] 10 mg PO Q6H PRN PRN Reason: Nausea levETIRAcetam [Keppra] 500 mg PO BID Lidocaine-Prilocaine Cream [Emla Cream 2.5%/2.5%] 1 applic TOPICAL DIRECTED PRN PRN Reason: PORT ACCESS Diphenox-Atrop 2.5-0.025 mg [Lomotil] 1 tab PO QID PRN PRN Reason: Loose Stool levETIRAcetam [Keppra] 250 mg PO BID carBAMazepine [TEGretol] 200 mg PO TID Capecitabine [Xeloda] 1,500 mg PO DIRECTED Discontinued Lisinopril 40 mg PO DAILY Discharge Medication List Capecitabine [Xeloda] 1,500 mg PO DIRECTED 04/04/19 [History] Diphenox-Atrop 2.5-0.025 mg [Lomotil] 1 tab PO QID PRN 04/04/19 [History] Lidocaine-Prilocaine Cream [Emla Cream 2.5%/2.5%] 1 applic TOPICAL DIRECTED PRN 04/04/19 [History] Prochlorperazine [Compazine] 10 mg PO Q6H PRN 04/04/19 [History] carBAMazepine [TEGretol] 200 mg PO TID 04/04/19 [History] levETIRAcetam [Keppra] 250 mg PO BID 04/04/19 [History] levETIRAcetam [Keppra] 500 mg PO BID 04/04/19 [History] Lisinopril [Prinivil] 10 mg PO DAILY 30 Days #30 tab 04/06/19 [Rx] Follow up Appointment(s)/Referral(s): PCP , None State [Other] - 1 Week Rama Muñiz MD [Primary Care Provider] - 3 Days (As previously scheduled) Patient Instructions/Handouts: Dehydration (DC) Activity/Diet/Wound Care/Special Instructions: Activity limited until follow-up continue with current diet and advance as tolerated follow up with primary care provider this week Keep a diary of blood pressure readings and bring with you to follow up appointment Discharge Disposition: HOME SELF-CARE
== END 2019-04-06 11:47 | disposition home or self-care (01) | DRG 641 ==
LOC: EC 09:08 → 4SSUR 13:44
PROVIDERS: ADMIT Internal Medicine; ATTEND Internal Medicine
DX: E86.0 Dehydration (principal); C78.02 Secondary malignant neoplasm of left lung; C78.01 Secondary malignant neoplasm of right lung; N17.9 Acute kidney failure, unspecified; K52.1 Toxic gastroenteritis and colitis; E87.2 Acidosis; I95.9 Hypotension, unspecified; G40.909 Epilepsy, unspecified, not intractable, without status epilepticus; E87.8 Other disorders of electrolyte and fluid balance, not elsewhere classified; R82.71 Bacteriuria; K12.31 Oral mucositis (ulcerative) due to antineoplastic therapy; T45.1X5A Adverse effect of antineoplastic and immunosuppressive drugs, initial encounter; F32.9 Major depressive disorder, single episode, unspecified; R26.2 Difficulty in walking, not elsewhere classified; I10 Essential (primary) hypertension; Z79.899 Other long term (current) drug therapy; Z85.038 Personal history of other malignant neoplasm of large intestine; Z90.49 Acquired absence of other specified parts of digestive tract; Z87.891 Personal history of nicotine dependence
CPT/HCPCS: 36415; 70450; 71046; 80048; 80053; 81001; 82550; 83605; 83690; 83735; 85025; 85027; 87040; 87077; 87086; 87186; 93005; 96360; 96361; 96374; 99285

== ENCOUNTER 2019-04-07 15:52 | Emergency (ER) | payer MEDICARE, OTHER ==
[2019-04-07] MEDS ORDERED: SODIUM CHLORIDE 0.9% 1,000 ML IV ONE (17:58)
--- NOTE | 2019-04-07 18:03 | ED ---
General Adult HPI - General Chief complaint: Recheck/Abnormal Lab/Rx Stated complaint: Abd labwork Time Seen by Provider: 04/07/19 16:05 Source: patient, RN notes reviewed Mode of arrival: ambulatory Limitations: no limitations - History of Present Illness Initial comments: This is a 73-year-old female who resents emergency department with a past medica l history significant for colon cancer stage IV. Patient states she is on chemo currently. Patient was on a trip to [place] recently when she came back she was extremely fatigue and dehydration she was sent to the emergency department. She was diagnosed with urinary tract infection emergency department antibiotics were started according to the family stopped when she was in the hospital and th en said she had a blood infection but that did not need to be treated. According to family that appointment there today blood was drawn and they were told to come back to emergency department it is unclear as to why they were told to come back to the emergency department the patient states she feels a little tired breath side from that she feels at her baseline. Patient denies any recent fever chills per patient denies any abdominal pain patient denies any chest pain patient denies difficulty breathing patient denies any dysuria hematuria urinary frequency. Family states she's also been having diarrhea constantly as well. - Related Data Home Medications Medication Instructions Recorded Confirmed Capecitabine [Xeloda] 1,500 mg PO DIRECTED 04/04/19 04/07/19 Diphenox-Atrop 2.5-0.025 mg 1 tab PO QID PRN 04/04/19 04/07/19 [Lomotil] Lidocaine-Prilocaine Cream [Emla 1 applic TOPICAL DIRECTED PRN 04/04/19 04/07/19 Cream 2.5%/2.5%] Prochlorperazine [Compazine] 10 mg PO Q6H PRN 04/04/19 04/07/19 carBAMazepine [TEGretol] 200 mg PO TID 04/04/19 04/07/19 levETIRAcetam [Keppra] 250 mg PO BID 04/04/19 04/07/19 levETIRAcetam [Keppra] 500 mg PO BID 04/04/19 04/07/19 Previous Rx's Medication Instructions Recorded Lisinopril [Prinivil] 10 mg PO DAILY 30 Days #30 tab 04/06/19 Nitrofurantoin Monohyd/M-Cryst 100 mg PO Q12HR #14 cap 04/07/19 [Macrobid] Potassium Chloride ER [K-Dur 10] 10 meq PO DAILY #10 tab 04/07/19 Allergies Allergy/AdvReac Type Severity Reaction Status Date / Time No Known Allergies Allergy Verified 04/07/19 18:21 Review of Systems ROS Statement: Those systems with pertinent positive or pertinent negative responses have been documented in the HPI. ROS Other: All systems not noted in ROS Statement are negative. 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 Patient is nontoxic and well- hydrated and is in no acute distress. ENT: Neck is soft and supple. No significant lymphadenopathy is noted. Oropharynx is clear. Dry mucous membranes. Neck has full range of motion without eliciting any pain. EYES: The sclera were anicteric and conjunctiva were pink and moist. Extraocular movements were intact and pupils were equal round and reactive to light. Eyelids were unremarkable. PULMONARY: Unlabored respirations. Good breath sounds bilaterally. No audible rales rhonchi or wheezing was noted. CARDIOVASCULAR: There is a regular rate and rhythm without any murmurs gallops or rubs. ABDOMEN: Soft and nontender with normal bowel sounds. SKIN: Skin is clear with no lesions or rashes and otherwise unremarkable. NEUROLOGIC: Patient is alert and oriented x3. Cranial nerves II through XII are grossly intact. Motor and sensory are also intact. Normal speech, volume and content. Symmetrical smile. MUSCULOSKELETAL: Normal extremities with adequate strength and full range of motion. No lower extremity swelling or edema. No calf tenderness. LYMPHATICS: No significant lymphadenopathy is noted PSYCHIATRIC: Normal psychiatric evaluation. Limitations: no limitations Course Vital Signs 04/07/19 04/07/19 16:03 18:36 Temperature 98.2 F Pulse Rate 107 H 75 Respiratory 18 18 Rate Blood Pressure 103/67 129/66 O2 Sat by Pulse 97 97 Oximetry Medical Decision Making - Medical Decision Making Patient received a gram of Rocephin emergency department also oral potassium as well as IV potassium. I spoke with Dr. Viveros and he agreed with this and they will follow-up the patient as an outpatient. - Lab Data Result diagrams: 04/07/19 18:15 04/07/19 18:15 Lab Results 04/07/19 04/07/19 Range/Units 18:15 18:15 WBC 5.0 (3.8-10.6) k/uL RBC 4.10 (3.80-5.40) m/uL Hgb 13.3 (11.4-16.0) gm/dL Hct 40.5 (34.0-46.0) % MCV 98.9 (80.0-100.0) fL MCH 32.5 (25.0-35.0) pg MCHC 32.9 (31.0-37.0) g/dL RDW 18.6 H (11.5-15.5) % Plt Count 150 (150-450) k/uL Neutrophils % (Manual) 38 % Band Neutrophils % 9 % Lymphocytes % (Manual) 29 % Monocytes % (Manual) 22 % Metamyelocytes % 2 % Neutrophils # (Manual) 2.30 (1.3-7.7) k/uL Lymphocytes # (Manual) 1.45 (1.0-4.8) k/uL Monocytes # (Manual) 1.10 H (0-1.0) k/uL Metamyelocytes # (Man) 0.10 H (0) k/uL Nucleated RBCs 0 (0-0) /100 WBC Manual Slide Review Performed Polychromasia Present Anisocytosis Slight Anisocytosis (manual) Present Macrocytosis Slight Sodium 148 H (137-145) mmol/L Potassium 2.8 L (3.5-5.1) mmol/L Chloride 126 H (98-107) mmol/L Carbon Dioxide 12 L (22-30) mmol/L Anion Gap 10 mmol/L BUN 13 (7-17) mg/dL Creatinine 1.07 H (0.52-1.04) mg/dL Est GFR (CKD-EPI)AfAm 61 (>60 ml/min/1.73 sqM) Est GFR (CKD-EPI)NonAf 53 (>60 ml/min/1.73 sqM) Glucose 120 H (74-99) mg/dL Calcium 8.7 (8.4-10.2) mg/dL Total Bilirubin 0.7 (0.2-1.3) mg/dL AST 50 H (14-36) U/L ALT 62 H (9-52) U/L Alkaline Phosphatase 84 (38-126) U/L Total Protein 5.9 L (6.3-8.2) g/dL Albumin 3.3 L (3.5-5.0) g/dL Disposition Clinical Impression: Urinary tract infection, Dehydration, Hypokalemia Disposition: HOME SELF-CARE Condition: Good Prescriptions: Potassium Chloride ER [K-Dur 10] 10 meq PO DAILY #10 tab Nitrofurantoin Monohyd/M-Cryst [Macrobid] 100 mg PO Q12HR #14 cap Is patient prescribed a controlled substance at d/c from ED?: No Referrals: Ariel Viveros MD [STAFF PHYSICIAN] - 1-2 days
[2019-04-07 18:43] LABS: Anisocytosis Slight; HCT 40.5 % (34.0-46.0); HGB 13.3 gm/dL (11.4-16.0); MCH 32.5 pg (25.0-35.0); MCHC 32.9 g/dL (31.0-37.0); MCV 98.9 fL (80.0-100.0); Macrocytosis Slight; Mean Platelet Volume 7.8; Platelet Count 150 k/uL (150-450); RDW 18.6 % (11.5-15.5)
[2019-04-07 18:48] LABS: Albumin 3.3 g/dL (3.5-5.0); Calcium 8.7 mg/dL (8.4-10.2); Potassium 2.8 mmol/L (3.5-5.1); Total Bilirubin 0.7 mg/dL (0.2-1.3); Total Protein 5.9 g/dL (6.3-8.2)
[2019-04-07] MEDS ORDERED: POTASSIUM CHLORIDE 10 MEQ in WATER FOR INJECTION 1 100ML.BAG IVPB STA (18:56)
[2019-04-07] MEDS ORDERED: cefTRIAXone IN SWFI 1,000 MG/10 ML SYRINGE IVP STA (18:56)
[2019-04-07] MEDS ORDERED: POTASSIUM CHLORIDE ER 20 MEQ TAB.ER PO STA (18:56)
[2019-04-07 19:17] LABS: Band Neutrophils % 9 %; Lymphocytes # (M) 1.45 k/uL (1.0-4.8); Metamyelocytes % 2 %; Neutrophils % (M) 38 %; Nucleated Red Blood Cells 0 /100 WBC (0-0); Total Cells Counted 100
[2019-04-07 19:18] LABS: Anisocytosis (M) Present; Polychromasia Present
[2019-04-07 20:48] VITALS: BP 128/72; PULSE 95; RESP 19; TEMP 98
== END 2019-04-07 20:49 | disposition home or self-care (01) ==
LOC: EC 15:52
DX: E87.6 Hypokalemia (principal); E86.0 Dehydration; N39.0 Urinary tract infection, site not specified; G40.909 Epilepsy, unspecified, not intractable, without status epilepticus; Z87.891 Personal history of nicotine dependence; Z85.038 Personal history of other malignant neoplasm of large intestine; Z85.118 Personal history of other malignant neoplasm of bronchus and lung; Z92.21 Personal history of antineoplastic chemotherapy; Z90.49 Acquired absence of other specified parts of digestive tract
CPT/HCPCS: 36415; 80053; 85025; 99283; 96365; 96375; 96361; J0696; J3480

== ENCOUNTER 2020-04-19 11:15 | Observation (INO) | payer MEDICARE, OTHER ==
[2020-04-19] MEDS ORDERED: SODIUM CHLORIDE 0.9% 1,000 ML IV STA (11:38)
--- NOTE | 2020-04-19 11:41 | ED ---
General Adult HPI - General Stated complaint: Dehydrated Time Seen by Provider: 04/19/20 11:16 Source: patient, family, RN notes reviewed Limitations: altered mental status - History of Present Illness Initial comments: Patient is a pleasant 74-year-old female presenting to the emergency department with family with concerns of dehydration. Onset of symptoms was 2 days ago. Patient is a poor historian and history comes from daughter. Patient does have cysts history of similar symptoms previously associated with dehydration or urinary tract infections. Patient has stage IV colon cancer with metastases to the lungs. Patient is on clinical trials in [place] secondary to no further treatment being available here. Patient has not been eating or taking well over the past couple of days. - Related Data Home Medications Medication Instructions Recorded Confirmed Diphenox-Atrop 2.5-0.025 mg 1 tab PO QID PRN 04/04/19 04/19/20 [Lomotil] carBAMazepine [TEGretol] 200 mg PO TID 04/04/19 04/19/20 levETIRAcetam [Keppra] 250 mg PO BID 04/04/19 04/19/20 levETIRAcetam [Keppra] 500 mg PO BID 04/04/19 04/19/20 lisinopriL [Lisinopril] 40 mg PO DAILY 04/19/20 04/19/20 Allergies Allergy/AdvReac Type Severity Reaction Status Date / Time No Known Allergies Allergy Verified 04/19/20 13:39 Review of Systems ROS Statement: Those systems with pertinent positive or pertinent negative responses have been documented in the HPI. ROS Other: All systems not noted in ROS Statement are negative. 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 History of Any Multi-Drug Resistant Organisms: None Reported Past Surgical History: Bowel Resection, Cholecystectomy Past Psychological History: Depression Past Alcohol Use History: None Reported Past Drug Use History: None Reported - Past Family History Mother Family Medical History: Cancer Additional Family Medical History / Comment(s): parkinson's Father Family Medical History: Cancer General Exam Limitations: no limitations General appearance: alert, in no apparent distress Head exam: Present: atraumatic, normocephalic Eye exam: Present: PERRL, other (Mild drainage bilateral) ENT exam: Present: mucous membranes dry Neck exam: Present: normal inspection Respiratory exam: Present: normal lung sounds bilaterally Cardiovascular Exam: Present: regular rate, normal rhythm GI/Abdominal exam: Present: soft. Absent: tenderness Extremities exam: Present: normal inspection. Absent: tenderness Neurological exam: Present: alert, altered, CN II-XII intact. Absent: motor sensory deficit Expanded Neurological exam: Present: protecting the airway Patient oriented to: Absent: person (Patient refuses to answer), place, time Motor strength exam: RUE: 5, LUE: 5, RLE: 5, LLE: 5 Eye Response: (4) open spontaneously Motor Response: (6) obeys commands Verbal Response: (3) inappropriate words Psychiatric exam: Present: normal affect, normal mood Skin exam: Present: normal color Course Vital Signs 04/19/20 04/19/20 04/19/20 11:17 11:30 11:39 Temperature 98.8 F Pulse Rate 84 82 Respiratory 16 16 Rate Blood Pressure 124/68 124/68 O2 Sat by Pulse 98 98 98 Oximetry 04/19/20 04/19/20 12:00 12:30 Temperature Pulse Rate 87 82 Respiratory 16 16 Rate Blood Pressure 107/65 100/60 O2 Sat by Pulse 94 L 92 L Oximetry EKG Findings - EKG Comments: EKG Findings:: Normal sinus rhythm 86. ID 138. QRS 80. QT 370. QTc 442. Normal axis. Normal QRS. No acute ST change. Medical Decision Making - Medical Decision Making Patient reevaluated and unchanged. Daughter states they have not discussed CODE STATUS previously. Patient clinically appeared dehydrated. Daughter is rec eptive to admission with IV fluids. IV antibiotics will be started secondary to possible mild urinary tract infection. Daughter is now receptive to head CT. - Lab Data Result diagrams: 04/19/20 11:42 04/19/20 11:42 Lab Results 04/19/20 04/19/20 04/19/20 Range/Units 11:42 11:42 11:42 WBC 5.4 (3.8-10.6) k/uL RBC 3.33 L (3.80-5.40) m/uL Hgb 11.3 L (11.4-16.0) gm/dL Hct 34.5 (34.0-46.0) % MCV 103.5 H D (80.0-100.0) fL MCH 33.8 (25.0-35.0) pg MCHC 32.7 (31.0-37.0) g/dL RDW 14.1 (11.5-15.5) % Plt Count 60 L D (150-450) k/uL Neutrophils % 89 % Lymphocytes % 3 % Monocytes % 6 % Eosinophils % 1 % Basophils % 0 % Neutrophils # 4.8 (1.3-7.7) k/uL Lymphocytes # 0.1 L (1.0-4.8) k/uL Monocytes # 0.3 (0-1.0) k/uL Eosinophils # 0.0 (0-0.7) k/uL Basophils # 0.0 (0-0.2) k/uL Manual Slide Review Performed Hypochromasia Slight Macrocytosis Slight PT 13.1 H (9.0-12.0) sec INR 1.3 H (<1.2) APTT 23.5 (22.0-30.0) sec Sodium 138 (137-145) mmol/L Potassium 3.4 L (3.5-5.1) mmol/L Chloride 108 H (98-107) mmol/L Carbon Dioxide 23 (22-30) mmol/L Anion Gap 7 mmol/L BUN 24 H (7-17) mg/dL Creatinine 1.07 H (0.52-1.04) mg/dL Est GFR (CKD-EPI)AfAm 60 (>60 ml/min/1.73 sqM) Est GFR (CKD-EPI)NonAf 52 (>60 ml/min/1.73 sqM) Glucose 117 H (74-99) mg/dL Plasma Lactic Acid Sven (0.7-2.0) mmol/L Calcium 7.8 L (8.4-10.2) mg/dL Magnesium 1.9 (1.6-2.3) mg/dL Total Bilirubin 1.8 H (0.2-1.3) mg/dL AST 52 H (14-36) U/L ALT 46 H (4-34) U/L Alkaline Phosphatase 187 H (38-126) U/L Creatine Kinase 92 (30-135) U/L Total Protein 5.6 L (6.3-8.2) g/dL Albumin 2.8 L (3.5-5.0) g/dL Urine Color Urine Appearance (Clear) Urine pH (5.0-8.0) Ur Specific [place] (1.001-1.035) Urine Protein (Negative) Urine Glucose (UA) (Negative) Urine Ketones (Negative) Urine Blood (Negative) Urine Nitrite (Negative) Urine Bilirubin (Negative) Urine Urobilinogen (<2.0) mg/dL Ur Leukocyte Esterase (Negative) Urine RBC (0-5) /hpf Urine WBC (0-5) /hpf Urine WBC Clumps (None) /hpf Ur Squamous Epith Cells (0-4) /hpf Amorphous Sediment (None) /hpf Urine Bacteria (None) /hpf Cellular Casts (0) /lpf Hyaline Casts (0-2) /lpf Urine Mucus (None) /hpf 04/19/20 04/19/20 Range/Units 11:42 12:09 WBC (3.8-10.6) k/uL RBC (3.80-5.40) m/uL Hgb (11.4-16.0) gm/dL Hct (34.0-46.0) % MCV (80.0-100.0) fL MCH (25.0-35.0) pg MCHC (31.0-37.0) g/dL RDW (11.5-15.5) % Plt Count (150-450) k/uL Neutrophils % % Lymphocytes % % Monocytes % % Eosinophils % % Basophils % % Neutrophils # (1.3-7.7) k/uL Lymphocytes # (1.0-4.8) k/uL Monocytes # (0-1.0) k/uL Eosinophils # (0-0.7) k/uL Basophils # (0-0.2) k/uL Manual Slide Review Hypochromasia Macrocytosis PT (9.0-12.0) sec INR (<1.2) APTT (22.0-30.0) sec Sodium (137-145) mmol/L Potassium (3.5-5.1) mmol/L Chloride (98-107) mmol/L Carbon Dioxide (22-30) mmol/L Anion Gap mmol/L BUN (7-17) mg/dL Creatinine (0.52-1.04) mg/dL Est GFR (CKD-EPI)AfAm (>60 ml/min/1.73 sqM) Est GFR (CKD-EPI)NonAf (>60 ml/min/1.73 sqM) Glucose (74-99) mg/dL Plasma Lactic Acid Sven 1.5 (0.7-2.0) mmol/L Calcium (8.4-10.2) mg/dL Magnesium (1.6-2.3) mg/dL Total Bilirubin (0.2-1.3) mg/dL AST (14-36) U/L ALT (4-34) U/L Alkaline Phosphatase (38-126) U/L Creatine Kinase (30-135) U/L Total Protein (6.3-8.2) g/dL Albumin (3.5-5.0) g/dL Urine Color Dark Brown Urine Appearance Turbid H (Clear) Urine pH 6.0 (5.0-8.0) Ur Specific [place] 1.019 (1.001-1.035) Urine Protein 1+ H (Negative) Urine Glucose (UA) Negative (Negative) Urine Ketones Negative (Negative) Urine Blood Small H (Negative) Urine Nitrite Negative (Negative) Urine Bilirubin 1+ H (Negative) Urine Urobilinogen 4.0 (<2.0) mg/dL Ur Leukocyte Esterase Negative (Negative) Urine RBC 10 H (0-5) /hpf Urine WBC 9 H (0-5) /hpf Urine WBC Clumps Rare H (None) /hpf Ur Squamous Epith Cells 2 (0-4) /hpf Amorphous Sediment Rare H (None) /hpf Urine Bacteria Few H (None) /hpf Cellular Casts 4 (0) /lpf Hyaline Casts 3 H (0-2) /lpf Urine Mucus Rare H (None) /hpf Disposition Clinical Impression: Altered mental status, Dehydration Disposition: ADMITTED IP TO THIS [facility] Is patient prescribed a controlled substance at d/c from ED?: No Referrals: Nonstaff,Physician [Primary Care Provider] - 1-2 days Decision Time: 13:57
[2020-04-19 12:05] LABS: Albumin 2.8 g/dL (3.5-5.0); Calcium 7.8 mg/dL (8.4-10.2); Magnesium 1.9 mg/dL (1.6-2.3); Potassium 3.4 mmol/L (3.5-5.1); Total Bilirubin 1.8 mg/dL (0.2-1.3); Total Protein 5.6 g/dL (6.3-8.2)
[2020-04-19 12:08] LABS: Basophils % (A) 0 %; Eosinophils % (A) 1 %; HCT 34.5 % (34.0-46.0); HGB 11.3 gm/dL (11.4-16.0); Hypochromasia Slight; Lymphocytes # (A) 0.1 k/uL (1.0-4.8); Lymphocytes % (A) 3 %; MCH 33.8 pg (25.0-35.0); MCHC 32.7 g/dL (31.0-37.0); Macrocytosis Slight; Mean Platelet Volume 7.5; Monocytes # (A) 0.3 k/uL (0-1.0); Monocytes % (A) 6 %; Neutrophils # (A) 4.8 k/uL (1.3-7.7); Neutrophils % (A) 89 %; RBC 3.33 m/uL (3.80-5.40); RDW 14.1 % (11.5-15.5); WBC 5.4 k/uL (3.8-10.6)
[2020-04-19 12:10] LABS: MCV 103.5 fL (80.0-100.0)
[2020-04-19 12:27] LABS: INR 1.3 (<1.2); Partial Thromboplastin Time 23.5 sec (22.0-30.0); Prothrombin Time 13.1 sec (9.0-12.0)
[2020-04-19 12:33] LABS: Platelet Count 60 k/uL (150-450)
[2020-04-19 12:46] LABS: Amorphous Sediment,Urine Rare /hpf; Appearance,Urine Turbid (Clear); Bacteria,Urine Few /hpf; Bilirubin,Urine 1+ (Negative); Blood,Urine Small (Negative); Cellular Casts,Urine 4 /lpf (0); Color,Urine Dark Brown; Glucose,Urine (UA) Negative (Negative); Hyaline Casts,Urine 3 /lpf (0-2); Ketones,Urine Negative (Negative); Leukocyte Esterase,Urine Negative (Negative); Mucus,Urine Rare /hpf; Nitrite,Urine Negative (Negative); Protein,Urine 1+ (Negative); RBC,Urine 10 /hpf (0-5); Specific Gravity,Urine 1.019 (1.001-1.035); Squamous Epithelial Cell,Urine 2 /hpf (0-4); WBC,Urine 9 /hpf (0-5)
--- NOTE | 2020-04-19 12:51 | XR ---
EXAMINATION TYPE: XR chest 2V DATE OF EXAM: 04/19/2020 COMPARISON: 04/04/2019 TECHNIQUE: PA and lateral views submitted. HISTORY: Weakness dehydration FINDINGS: The lungs are clear and there is no pneumothorax, pleural effusion, or focal pneumonia. There is a large mass in the left lower lobe measuring 3 cm highly suggestive of malignancy. Diffuse hyperinflat ion. No pleural effusion. No interstitial edema. Mild prominence of the right hilum may represent pro minent pulmonary artery and pulmonary arterial hypertension. IMPRESSION: 1. Large 3 cm left lower lobe mass suspicious for malignancy. Recommend follow-up CT scan of the ches t. 2. COPD
[2020-04-19] MEDS ORDERED: NALOXONE 0.4 MG/ML 1 ML VIAL IV PRN (13:57)
--- NOTE | 2020-04-19 14:49 | CT ---
EXAMINATION TYPE: CT brain wo con DATE OF EXAM: 04/19/2020 HISTORY: Mental status changes CT DLP: 1232.4 mGycm. Automated Exposure Control for Dose Reduction was Utilized. TECHNIQUE: CT scan of the head is performed without contrast. COMPARISON: CT brain April 04, 2019. FINDINGS: There is no acute intracranial hemorrhage or midline shift identified. There is diffuse v entricular and sulcal prominence consistent with diffuse age-related cerebral atrophy. Increased lef t-sided versus right-sided atrophy is redemonstrated. Ogden-white matter differentiation fairly well m aintained. Patchy opacification right mastoid air cells redemonstrated. Patchy soft tissue density r ight external auditory canal felt to reflect cerumen. Calcification distal internal carotid arteries bilaterally. The globes are intact and the visualized sinuses are clear. IMPRESSION: No acute intracranial hemorrhage or midline shift. There is mild to moderate diffuse ce rebral atrophy greater over the left frontal and parietal lobes redemonstrated. No significant change from prior CT. Possible right-sided mastoiditis versus trapped fluid. No significant change from carlos or.
[2020-04-19] MEDS ORDERED: DIPHENOX-ATROP 2.5-0.025 MG 1 EACH TAB PO PRN (17:23)
--- NOTE | 2020-04-19 18:17 | HP ---
HISTORY AND PHYSICAL This patient is a 74-year-old white female who came to the emergency room with concerns about dehydration that started 2 days ago. Poor historian. She yells and screams in anger when anybody tries to examine her. She had experimental chemo, the fourth dose 2 days ago. 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 She is on clinical trials in [place] secondary to this. She has not been eating or drinking well since the last chemo. Takes Lomotil, Tegretol, Keppra and lisinopril at home. ALLERGIES NEGATIVE. Fourteen-point review of systems: Anger and generally mean with some yelling behavior if you try to touch her. History of metastatic colon cancer, hypertension, seizure disorder. PAST SURGICAL HISTORY: Bowel resection, cholecystectomy, depression. Mother with cancer, Parkinson's. Father with cancer. Temperature 98.8, blood pressure over 120s over 60s, O2 98, pulse 80s to 82, respiratory rate 16 to 18. She appears angry and screaming, yelling, does not obey commands. CARDIOVASCULAR: Regular rate and rhythm. LUNGS: Clear. OPHTHALMOLOGIC: No scleral icterus. No other exam was possible because of yelling and screaming if you try to touch her. EKG shows normal sinus rhythm. She is clinically dehydrated. IV fluids will be given. Mild UTI, elevated LFTs. Will have to do an ultrasound of the liver, but she is clinically dehydrated status post chemo. Will have to rehydrate her and possibly discharge her home, depending on how she does per her family. She has thrombocytopenia, prerenal renal insufficiency, elevated liver enzymes, possibly due to mass; not sure. Continue current treatments, IV antibiotics. Rehydrate. Altered mental status. Get Neurology to see her as well as Infectious Disease and oncologist. Prognosis guarded. MMODL / IJN: [id number] /
[2020-04-19] MEDS: carBAMazepine 200 MG TAB PO SCH (20:44)
[2020-04-19] MEDS ORDERED: levETIRAcetam 500 MG TAB PO SCH (21:00)
[2020-04-20 06:19] VITALS: BP 107/64; PULSE 85; TEMP 97.6
[2020-04-20 07:55] LABS: Albumin 2.3 g/dL (3.5-5.0); Calcium 7.5 mg/dL (8.4-10.2); Potassium 3.7 mmol/L (3.5-5.1); Total Bilirubin 0.7 mg/dL (0.2-1.3)
[2020-04-20 07:56] LABS: HCT 29.8 % (34.0-46.0); Hypochromasia Moderate; MCH 33.5 pg (25.0-35.0); MCHC 32.1 g/dL (31.0-37.0); MCV 104.4 fL (80.0-100.0); Macrocytosis Slight; Mean Platelet Volume 9.5; RBC 2.85 m/uL (3.80-5.40); RDW 13.9 % (11.5-15.5); WBC 4.5 k/uL (3.8-10.6)
[2020-04-20 07:58] LABS: HGB 9.5 gm/dL (11.4-16.0); Platelet Count 50 k/uL (150-450)
--- NOTE | 2020-04-20 08:19 | US ---
EXAMINATION TYPE: US abdomen limited DATE OF EXAM: 04/20/2020 COMPARISON: NONE CLINICAL HISTORY: 74-year-old female elevated LFTs/bilirubin. Abnormal labs, GB removed TECHNIQUE: Multiple sonographic images of the right upper quadrant are obtained. FINDINGS: EXAM MEASUREMENTS: Liver Length: 15.9 cm CBD: 0.7 cm Right Kidney: 9.2 x 4.2 x 5.1 cm Pancreas: wnl, tail obscured by overlying bowel gas, 2mm duct (normal caliber) visualized Liver: Visualized portions appeared wnl Evidence for sonographic Calderón's sign: No CBD: Mildly dilated but may be acceptable given patient's age. Right Kidney: Visualized portions appeared wnl IMPRESSION: Bile duct caliber is mildly dilated at 7 mm but this measurement may be acceptable given patient's ag e and postcholecystectomy status. Further clinical correlation will be needed.
[2020-04-20] MEDS: SODIUM CHLORIDE 0.9% 1,000 ML IV SCH ×3 (08:30→09:29)
[2020-04-20 09:00] LABS: Eosinophils # (M) 0.05 k/uL (0-0.7); Lymphocytes # (M) 0.18 k/uL (1.0-4.8); Monocytes # (M) 0.36 k/uL (0-1.0); Neutrophils # (M) 3.92 k/uL (1.3-7.7); Neutrophils % (M) 87 %; Nucleated Red Blood Cells 0 /100 WBC (0-0); Total Cells Counted 100
[2020-04-20] MEDS ORDERED: lisinopriL 20 MG TAB PO SCH (09:00)
[2020-04-20 09:01] LABS: Anisocytosis (M) Present; Poikilocytosis (M) Present
[2020-04-20 09:23] VITALS: RESP 18
[2020-04-20] MEDS: carBAMazepine 200 MG TAB PO SCH ×2 (09:27→17:23)
[2020-04-20] MEDS ORDERED: LORazepam 2 MG/ML INJ IV PRN (16:32)
--- NOTE | 2020-04-20 19:24 | P.CNNES ---
History of Present Illness Consult date: 04/20/20 Requesting physician: Sonido Atkinson Reason for Consult: Altered mental status History of Present Illness: 74-year-old female came to the hospital yesterday at 11:15 AM because of concern of dehydration. Symptoms started 2 days ago. Patient has stage IV colon cancer with metastasis to the lungs. Patient is on clinical trials in [place] secondary to no further treatment being available here. Patient appears obviously delirious. Patient states that she has history of seizure disorder since she was age 55-62 years. She is currently on Tegretol 200 mg 3 times a day and Keppra 750 mg twice a day. Patient states she has not had any seizures for a year. Patient states that she probably had a seizure, and blames it on some medication that she received for urinary tract infection. She states that her blood pressure went "rafael high" and she had a seizure. Patient states she is fully compliant with her seizure medication. She follows up with Dr. Soto. Patient's vitals on arrival shows blood pressure 124/68, pulse rate [address] head showed no acute intracranial hemorrhage or midline shift. There is mild to moderate diffuse cerebral atrophy greater over the left frontal and parietal lobes redemonstrated. No significant change from prior CT. Possible right- sided mastoiditis versus trapped fluid. No significant change from prior. EKG shows normal sinus rhythm with nonspecific T-wave abnormality. Chest x-ray showed large 3 cm left lower lobe mass suspicious for malignancy. Recommend follow-up computed tomography scan of chest. COPD. Patient's Tegretol level is <3.0. Ervin virus PCR negative. UA shows 9 WBCs and rare clumps. Negative nitrite and negative leukocyte esterase. Blood test shows normal WBC, hemoglobin 11.3 with elevated MCV 103.5, platelets 60. Sodium 138, potassium 3.4, BUN 24, creatinine 1.07. AST 52, ALT 46 which repeat test has come back to normal at 30 and 32 respectively. Review of Systems Patient denies headache. Denies any problem with the vision. Denies chest pain, and nausea vomiting diarrhea or abdominal pain. Patient is somewhat confused. Slightly irritable, did not elect to answer any other questions. 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 History of Any Multi-Drug Resistant Organisms: None Reported Past Surgical History: Bowel Resection, Cholecystectomy Past Psychological History: Depression Smoking Status: Former smoker Past Alcohol Use History: None Reported Past Drug Use History: None Reported - Past Family History Mother Family Medical History: Cancer Additional Family Medical History / Comment(s): parkinson's Father Family Medical History: Cancer Medications and Allergies Home Medications Medication Instructions Recorded Confirmed Type Diphenox-Atrop 2.5-0.025 mg 1 tab PO QID PRN 04/04/19 04/19/20 History [Lomotil] carBAMazepine [TEGretol] 200 mg PO TID 04/04/19 04/19/20 History levETIRAcetam [Keppra] 250 mg PO BID 04/04/19 04/19/20 History levETIRAcetam [Keppra] 500 mg PO BID 04/04/19 04/19/20 History lisinopriL 40 mg PO DAILY 04/19/20 04/19/20 History Allergies Allergy/AdvReac Type Severity Reaction Status Date / Time No Known Allergies Allergy Verified 04/19/20 13:39 Physical Examination - Vital Signs Vital Signs: Vital Signs Temp Pulse Resp BP Pulse Ox 04/20/20 08:00 18 04/20/20 06:19 97.6 F 85 20 107/64 95 04/19/20 21:00 80 20 98/63 92 L 04/19/20 17:26 98.3 F 85 18 96/60 97 Intake and Output 04/20/20 04/20/20 04/20/20 06:59 14:59 22:59 Intake Total 400 1200 Balance 400 1200 Intake: Intake, IV Titration 400 800 Amount Sodium Chloride 0.9% 1, 800 000 ml @ 100 mls/hr IV . Q10H TRISTAN Rx#:[id number] cefTRIAXone 1 gm In 400 Sodium Chloride 0.9% 50 ml @ 100 mls/hr IVPB Q24HR TRISTAN Rx#:[id number] Oral 400 Other: Voiding Method Diaper Diaper Diaper # Voids 1 1 1 On examination patient is an elderly female, who is obviously encephalopathic, slightly delirious, slightly irritable and gets upset easily. Speech is clear with no aphasia or dysarthria. She knows that it is [facility] in [facility] and name of the current president. She states it's the year 2019, but when asked about the month, patient became edgy. On cranial nerve examination pupils are round and reactive to light, visual stevens were difficult to assess because patient would not cooperate and follow directions. She would keep on moving both hands. Face is symmetric and tongue protrudes the midline. Palatal elevation is normal. Hearing slightly decreased, shoulder shrug normal. Muscle strength appears normal in the arms and legs. Reflexes are 1+ and plantars downgoing. She is slightly tremulous for finger to nose testing. Tone and bulk of muscles normal. Gait deferred. No obvious bruit, S1 and S2 audible. Chest is clear, abdomen nontender. Results - Laboratory Findings CBC and BMP: 04/20/20 06:39 04/20/20 06:39 Abnormal Lab Findings: Abnormal Labs 04/19/20 04/19/20 04/19/20 11:42 11:42 11:42 RBC 3.33 L Hgb 11.3 L Hct MCV 103.5 H D Plt Count 60 L D Lymphocytes # 0.1 L Lymphocytes # (Manual) PT 13.1 H INR 1.3 H Potassium 3.4 L Chloride 108 H BUN 24 H Creatinine 1.07 H Glucose 117 H Calcium 7.8 L Total Bilirubin 1.8 H AST 52 H ALT 46 H Alkaline Phosphatase 187 H Total Protein 5.6 L Albumin 2.8 L Urine Appearance Urine Protein Urine Blood Urine Bilirubin Urine RBC Urine WBC Urine WBC Clumps Amorphous Sediment Urine Bacteria Hyaline Casts Urine Mucus 04/19/20 04/20/20 04/20/20 12:09 06:39 06:39 RBC 2.85 L Hgb 9.5 L D Hct 29.8 L MCV 104.4 H Plt Count 50 L Lymphocytes # Lymphocytes # (Manual) 0.18 L PT INR Potassium Chloride 114 H BUN 37 H Creatinine 1.11 H Glucose Calcium 7.5 L Total Bilirubin AST ALT Alkaline Phosphatase 145 H Total Protein 5.0 L Albumin 2.3 L Urine Appearance Turbid H Urine Protein 1+ H Urine Blood Small H Urine Bilirubin 1+ H Urine RBC 10 H Urine WBC 9 H Urine WBC Clumps Rare H Amorphous Sediment Rare H Urine Bacteria Few H Hyaline Casts 3 H Urine Mucus Rare H Assessment and Plan Assessment: * Altered mental status, likely due to delirium with mildly encephalopathy. * Seizure disorder * Metastatic colon cancer. * Large 3 cm left lower lobe mass suspicious was malignancy. * Anemia, thrombocytopenia, mild renal insufficiency. Plan: * Patient appears delirious at this time. MRI of the brain with IV contrast has been ordered by oncology. * Apparently patient is adamant to go home, and is in the process of getting d ischarged. * Patient is currently on Tegretol 200 mg 3 times a day, but her levels are <3.0, suggestive of possible noncompliance although patient states that she is fully compliant with the medication. Keppra level is pending. Resume seizure medications at the current dose. Patient is on Keppra 750 mg twice a day and Tegretol 200 mg 3 times a day. * Patient will have further workup as an outpatient.
--- NOTE | 2020-04-20 21:21 | P.CONS ---
History of Present Illness - Reason for Consult Consult date: 04/20/20 metastatic colon cancer Requesting physician: Osman Graves - Chief Complaint mental status change - History of Present Illness Mrs. Regan is well known to our practice for treatment of her known metastatic colon cancer. Primary oncolgist Dr. Muñiz. She was diagnosed in early 2017. CT scan of abdomen done on 10/14/2017 did not reveal any significant finding,on 11/16/2017 she had a colonoscopy (her first one) which revealed a suspicious cecal circumferential mass biopsy was positive for tubulovillous adenoma with high grade dysplasia,there was also tubulovillous adenoma in transverse colon,ascending colon and sigmoid. On 11/26/2017,she had right colectomy,pathology revealed grade 2,mucinous invasive carcinoma,T3,3/21 regional nodes were positive for metastatic disease. On 01/11/2018,CT scan of chest revealed small bilateral lung nodules. Molecular studies revealed :KRAS positive,negative BRAF,NRAF,HER2/JEN negative,MSI-Stable disease. On 01/26/2018,she started mFOLFOX6 regimen On 05/24/2018,repeat CT scan of chest revealed increase of size in LLL lung n odule,up to 1.7cm,from 1.0cm on prior CT,the remaing nodule are very small and stable She had total of 9 cycles of mFOLFOX (completed on 05/24/2018),was stopped due to possible increase in LLL nodule and progressing fatigue and neuropathy. After discussion with IR,the patient decided against CT guided biopsy of LLL nodule On 08/03/2018,repeat CT scan of chest/abdomen/pelvis revealed further increase in the size of her lung nodules. On 08/26/2018,CT guided biopsy of LLL lung nodule was positive for metastatic carcinoma consistent with colon primary On 10/05/2018,she started FOLFIRI/avastin regimen On 12/20/2018,repeat CT scan of chest/abdomen/pelvis revealed stable disease. On 12/22/2018,CEA was 3.0 On 02/03/2019,repeat CT scan of chest/abdomen/pelvis revealed stable disease. On 02/08/2019,CEA was 5.3. She had total of 9 cycles was discontinued on 01/25/2019 due to progressive fatigue and went on avastin/xeloda. Repeat CT scan of chest/abdomen/pelvis on 04/25/2019 revealed progression of her disease in the lung,avastin/xeloda. She started dose escalating regorafinib in April/2019 and stayed on 120 mg/day 1-21 every [address] scan of chest/abdomen/pelvis on 07/11/2019 revealed relatively stable disease. repeat CT scan of chest/abdomen/pelvis on 09/07/2019 revealed disease progression in her chest and abdomen and regorafinib was discontinued. She opted not to go on clinical trials (was referred to [facility]) and started lonsurf in early September/2019. On 11/21/2019,repeat CT scan of chest/abdomen/pelvis revealed slight progression of her disease On 02/14/2020: Repeat CT scan of chest/abdomen/pelvis on 02/07/2020 revealed evidence of disease progression. lonsurf was discontinued at that time. She was referred for phase I clinical trial, although refused at that time and was started on avastin and xeloda. It is not clear what she has been treated with most recently. She presented for concerns of mental status change and labile moods. She is angry and upset. Her daughter at bedside states this happens when she has infection, although urine did not show obvious infection and concerns for metastatic disease to the brain were discussed. An MRI of the Brain was ordered although it appears she did not have this performed, again not clear why although appears she likely refused and planning for discharge. Review of Systems ROS unobtainable: due to mental status 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 History of Any Multi-Drug Resistant Organisms: None Reported Past Surgical History: Bowel Resection, Cholecystectomy Past Psychological History: Depression Smoking Status: Former smoker Past Alcohol Use History: None Reported Past Drug Use History: None Reported - Past Family History Mother Family Medical History: Cancer Additional Family Medical History / Comment(s): parkinson's Father Family Medical History: Cancer Medications and Allergies Home Medications Medication Instructions Recorded Confirmed Type Diphenox-Atrop 2.5-0.025 mg 1 tab PO QID PRN 04/04/19 04/19/20 History [Lomotil] carBAMazepine [TEGretol] 200 mg PO TID 04/04/19 04/19/20 History levETIRAcetam [Keppra] 250 mg PO BID 04/04/19 04/19/20 History levETIRAcetam [Keppra] 500 mg PO BID 04/04/19 04/19/20 History lisinopriL 40 mg PO DAILY 04/19/20 04/19/20 History Allergies Allergy/AdvReac Type Severity Reaction Status Date / Time No Known Allergies Allergy Verified 04/19/20 13:39 Physical Exam Vitals: Vital Signs Temp Pulse Resp BP Pulse Ox 04/20/20 08:00 18 04/20/20 06:19 97.6 F 85 20 107/64 95 04/19/20 21:00 80 20 98/63 92 L 04/19/20 17:26 98.3 F 85 18 96/60 97 04/19/20 16:00 85 18 Intake and Output 04/20/20 04/20/20 04/20/20 06:59 14:59 22:59 Intake Total 400 1200 Balance 400 1200 Intake: Intake, IV Titration 400 800 Amount Sodium Chloride 0.9% 1, 800 000 ml @ 100 mls/hr IV . Q10H TRISTAN Rx#:[id number] cefTRIAXone 1 gm In 400 Sodium Chloride 0.9% 50 ml @ 100 mls/hr IVPB Q24HR TRISTAN Rx#:[id number] Oral 400 Other: Voiding Method Diaper Diaper Diaper # Voids 1 1 1 - Constitutional General appearance: no acute distress, thin - EENT Eyes: EOMI, dentition normal ENT: NA/AT, normal oropharynx - Neck Neck: normal ROM - Respiratory Respiratory: bilateral: CTA - Cardiovascular Rhythm: regular Heart sounds: normal: S1, S2 - Gastrointestinal General gastrointestinal: soft, tenderness - Integumentary Integumentary: pale - Neurologic megan - Musculoskeletal Musculoskeletal: generalized weakness, strength equal bilaterally - Psychiatric angry, anxious confused Results CBC & Chem 7: 04/20/20 06:39 04/20/20 06:39 Labs: Abnormal Lab Results - Last 24 Hours (Table) 04/20/20 04/20/20 Range/Units 06:39 06:39 RBC 2.85 L (3.80-5.40) m/uL Hgb 9.5 L D (11.4-16.0) gm/dL Hct 29.8 L (34.0-46.0) % MCV 104.4 H (80.0-100.0) fL Plt Count 50 L (150-450) k/uL Lymphocytes # (Manual) 0.18 L (1.0-4.8) k/uL Chloride 114 H (98-107) mmol/L BUN 37 H (7-17) mg/dL Creatinine 1.11 H (0.52-1.04) mg/dL Calcium 7.5 L (8.4-10.2) mg/dL Alkaline Phosphatase 145 H (38-126) U/L Total Protein 5.0 L (6.3-8.2) g/dL Albumin 2.3 L (3.5-5.0) g/dL CT Scan - head: report reviewed Assessment and Plan (1) Metastatic colon cancer in female Status: Acute Code(s): C18.9 - MALIGNANT NEOPLASM OF COLON, UNSPECIFIED SNOMED Code(s): 875005103 (2) Altered mental status Status: Acute Code(s): R41.82 - ALTERED MENTAL STATUS, UNSPECIFIED SNOMED Code(s): 318686504 Plan: Assessment and Recommendations: Mental Status Changes: - MRI of the brain is highly recommended for evaluation of metastatic disease, this has been discussed with patient and daughter. 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 Mary Kay simmons Physician Attest: I have completed the full history and physcial and agree with above dictation, dictated as a scribe
== END 2020-04-20 17:36 | disposition home or self-care (01) ==
LOC: EC 11:15 → 5NMEDONC 13:57 → INTOOBSV 13:57 → 5NMEDONC 16:45
PROVIDERS: ADMIT Family Medicine; ATTEND Family Medicine
DX: E86.0 Dehydration (principal); N39.0 Urinary tract infection, site not specified; R79.89 Other specified abnormal findings of blood chemistry; D69.6 Thrombocytopenia, unspecified; N28.9 Disorder of kidney and ureter, unspecified; C78.00 Secondary malignant neoplasm of unspecified lung; C18.9 Malignant neoplasm of colon, unspecified; D64.9 Anemia, unspecified; G40.909 Epilepsy, unspecified, not intractable, without status epilepticus; G93.40 Encephalopathy, unspecified; I10 Essential (primary) hypertension; J44.9 Chronic obstructive pulmonary disease, unspecified; Z03.818 Encounter for observation for suspected exposure to other biological agents ruled out; Z79.899 Other long term (current) drug therapy; Z80.9 Family history of malignant neoplasm, unspecified; Z82.0 Family history of epilepsy and other diseases of the nervous system; Z87.891 Personal history of nicotine dependence; Z92.21 Personal history of antineoplastic chemotherapy; F32.9 Major depressive disorder, single episode, unspecified
CPT/HCPCS: 96361 ×3; 96365; 96366; 99285; 36415; 93005; 80156; 80053 ×2; 80177; 82550; 83605; 83735; 85025 ×2; 85610; 85730; 81001; 71046; 76705; 70450; G0378; U0003; J0696 ×2

== ENCOUNTER 2020-05-10 09:24 | Emergency (ER) | payer MEDICARE, OTHER ==
[2020-05-10 09:41] VITALS: RESP 18
[2020-05-10] MEDS ORDERED: SODIUM CHLORIDE 0.9% 500 ML 500 ML IV STA ×2 (10:01→11:53)
--- NOTE | 2020-05-10 10:16 | ED ---
General Adult HPI - General Chief complaint: Altered Mental Status Stated complaint: Dehydration Time Seen by Provider: 05/10/20 09:27 Source: patient, EMS Mode of arrival: EMS Limitations: no limitations - History of Present Illness Initial comments: Patient is a 74-year-old female presenting to the emergency department via EMS with complaints of dehydration. The patient is currently undergoing chemo treatment for stage IV colon cancer with metastases. Her last chemo treatment was 2 days ago. Family states that she normally gets dehydrated after these treatments. Patient has no specific complaints right now including no pain. She denies any abdominal pain, nausea or vomiting. She denies chest pain or shortness of breath. She is unwilling to answer questions about where she is at. She is being uncooperative and does not want to answer questions. Patient's son did come back to the room and is helping provide history. He states that she has been combative and uncooperative in the past. He states that she sometimes gets Ativan to help with the symptoms. He has no other further information. Upon arrival to the ER, her vital signs are stable. - Related Data Home Medications Medication Instructions Recorded Confirmed Diphenox-Atrop 2.5-0.025 mg 1 tab PO QID PRN 04/04/19 05/10/20 [Lomotil] carBAMazepine [TEGretol] 200 mg PO TID 04/04/19 05/10/20 levETIRAcetam [Keppra] 250 mg PO BID 04/04/19 05/10/20 levETIRAcetam [Keppra] 500 mg PO BID 04/04/19 05/10/20 lisinopriL 40 mg PO DAILY 04/19/20 05/10/20 Infusion (Unknown) 1 dose IV Q21D 05/10/20 05/10/20 Previous Rx's Medication Instructions Recorded Cephalexin [Keflex Susp] 10 ml PO BID 5 Days #100 ml 05/10/20 Cephalexin [Keflex] 500 mg PO BID 5 Days #10 cap 05/10/20 Allergies Allergy/AdvReac Type Severity Reaction Status Date / Time No Known Allergies Allergy Verified 05/10/20 11:43 Review of Systems ROS Statement: Those systems with pertinent positive or pertinent negative responses have been documented in the HPI. ROS Other: All systems not noted in ROS Statement are negative. 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 History of Any Multi-Drug Resistant Organisms: None Reported Past Surgical History: Bowel Resection, Cholecystectomy Past Psychological History: Depression Smoking Status: Former smoker Past Alcohol Use History: None Reported Past Drug Use History: None Reported - Past Family History Mother Family Medical History: Cancer Additional Family Medical History / Comment(s): parkinson's Father Family Medical History: Cancer General Exam - General Exam Comments Initial Comments: GENERAL: Patient appears pale, dry. HEAD: Atraumatic, normocephalic. EYES: Pupils equal round and reactive to light, extraocular movements intact, sclera anicteric, conjunctiva are normal. Eyelids were unremarkable. ENT: TMs normal, nares patent, oropharynx clear without exudates. Moist mucous membranes. NECK: Normal range of motion, supple without lymphadenopathy or JVD. LUNGS: Unlabored respirations. Breath sounds clear to auscultation bilaterally and equal. No wheezes rales or rhonchi. HEART: Regular rate and rhythm without murmurs, rubs or gallops. ABDOMEN: Soft, nontender, normoactive bowel sounds. No guarding, no rebound. No masses appreciated. : Deferred MUSCULOSKELETAL: Normal extremities with adequate strength and normal range of motion, no pitting or edema. No clubbing or cyanosis. NEUROLOGICAL: Patient is unwilling to answer questions about where she is at, her birthday. She does tell me her name. Symmetrical smile. Normal speech, normal gait. PSYCH: Normal mood, normal affect. SKIN: Warm, Dry, normal turgor, no rashes or lesions noted. Limitations: no limitations Course Vital Signs 05/10/20 05/10/20 05/10/20 09:27 12:31 13:23 Temperature 98.2 F 100.8 F H 97.7 F Pulse Rate 97 90 86 Respiratory 18 18 18 Rate Blood Pressure 109/48 108/55 110/53 O2 Sat by Pulse 86 L 98 96 Oximetry EKG Findings - EKG Comments: EKG Findings:: Normal sinus rhythm, normal ECG, no signs of acute ischemia. Ventricular rate 91, CA interval 118, QT 350. Medical Decision Making - Medical Decision Making Patient is a 74-year-old female presenting for possible dehydration. She is currently receiving treatment for colon cancer and had recent chemo treatment. Her vital signs are stable upon arrival. She has no specific complaints. Patient's hemoglobin is stable, BUN is elevated at 25, liver enzymes are elevated but is secondary to her ongoing cream and treatment. Her urine does show evidence for UTI, urine culture is pending. I discussed patient's findings with her son who is here with her now. Her son states that patient typically gets dehydrated after chemo treatments. She does also get frequent UTIs. Patient's does not want patient admitted for this. Patient has been stable in the ER. I will give her a dose of Rocephin before discharge. I will continue patient on Keflex for UTI. She will follow-up with her normal doctors. Patient's son and the patient's daughter are in agreement with this plan of care. Return parameters were discussed with him and he verbalized understa nding. Case discussed with Dr. Cespedes. Of note, there was a temperature of 100.8 that was recorded however upon recheck approximately 30 minutes later, her temperature was normal. I do believe this was taken in error. She has been afebrile during her entire ER stay. - Lab Data Result diagrams: 05/10/20 10:34 05/10/20 10:34 Lab Results 05/10/20 05/10/20 05/10/20 Range/Units 10:34 10:34 10:34 WBC 6.9 (3.8-10.6) k/uL RBC 3.54 L (3.80-5.40) m/uL Hgb 11.1 L (11.4-16.0) gm/dL Hct 34.4 (34.0-46.0) % MCV 97.1 D (80.0-100.0) fL MCH 31.4 (25.0-35.0) pg MCHC 32.4 (31.0-37.0) g/dL RDW 15.1 (11.5-15.5) % Plt Count 89 L D (150-450) k/uL Neutrophils % 88 % Lymphocytes % 2 % Monocytes % 7 % Eosinophils % 1 % Basophils % 0 % Neutrophils # 6.0 (1.3-7.7) k/uL Lymphocytes # 0.2 L (1.0-4.8) k/uL Monocytes # 0.5 (0-1.0) k/uL Eosinophils # 0.1 (0-0.7) k/uL Basophils # 0.0 (0-0.2) k/uL Manual Slide Review Performed RBC Morphology Normal Sodium 136 L (137-145) mmol/L Potassium 3.4 L (3.5-5.1) mmol/L Chloride 106 (98-107) mmol/L Carbon Dioxide 24 (22-30) mmol/L Anion Gap 6 mmol/L BUN 25 H (7-17) mg/dL Creatinine 1.00 (0.52-1.04) mg/dL Est GFR (CKD-EPI)AfAm 66 (>60 ml/min/1.73 sqM) Est GFR (CKD-EPI)NonAf 57 (>60 ml/min/1.73 sqM) Glucose 122 H (74-99) mg/dL Plasma Lactic Acid Sven 1.1 (0.7-2.0) mmol/L Calcium 8.1 L (8.4-10.2) mg/dL Magnesium 2.0 (1.6-2.3) mg/dL Total Bilirubin 2.1 H (0.2-1.3) mg/dL AST 50 H (14-36) U/L ALT 41 H (4-34) U/L Alkaline Phosphatase 163 H (38-126) U/L Total Protein 5.9 L (6.3-8.2) g/dL Albumin 2.9 L (3.5-5.0) g/dL Urine Color Urine Appearance (Clear) Urine pH (5.0-8.0) Ur Specific [place] (1.001-1.035) Urine Protein (Negative) Urine Glucose (UA) (Negative) Urine Ketones (Negative) Urine Blood (Negative) Urine Nitrite (Negative) Urine Bilirubin (Negative) Urine Urobilinogen (<2.0) mg/dL Ur Leukocyte Esterase (Negative) Urine RBC (0-5) /hpf Urine WBC (0-5) /hpf Ur Squamous Epith Cells (0-4) /hpf Amorphous Sediment (None) /hpf Urine Bacteria (None) /hpf Cellular Casts (0) /lpf Hyaline Casts (0-2) /lpf Granular Casts (0) /lpf Urine Mucus (None) /hpf 05/10/ Range/Units 11:29 WBC (3.8-10.6) k/uL RBC (3.80-5.40) m/uL Hgb (11.4-16.0) gm/dL Hct (34.0-46.0) % MCV (80.0-100.0) fL MCH (25.0-35.0) pg MCHC (31.0-37.0) g/dL RDW (11.5-15.5) % Plt Count (150-450) k/uL Neutrophils % % Lymphocytes % % Monocytes % % Eosinophils % % Basophils % % Neutrophils # (1.3-7.7) k/uL Lymphocytes # (1.0-4.8) k/uL Monocytes # (0-1.0) k/uL Eosinophils # (0-0.7) k/uL Basophils # (0-0.2) k/uL Manual Slide Review RBC Morphology Sodium (137-145) mmol/L Potassium (3.5-5.1) mmol/L Chloride (98-107) mmol/L Carbon Dioxide (22-30) mmol/L Anion Gap mmol/L BUN (7-17) mg/dL Creatinine (0.52-1.04) mg/dL Est GFR (CKD-EPI)AfAm (>60 ml/min/1.73 sqM) Est GFR (CKD-EPI)NonAf (>60 ml/min/1.73 sqM) Glucose (74-99) mg/dL Plasma Lactic Acid Sven (0.7-2.0) mmol/L Calcium (8.4-10.2) mg/dL Magnesium (1.6-2.3) mg/dL Total Bilirubin (0.2-1.3) mg/dL AST (14-36) U/L ALT (4-34) U/L Alkaline Phosphatase (38-126) U/L Total Protein (6.3-8.2) g/dL Albumin (3.5-5.0) g/dL Urine Color Dark Brown Urine Appearance Turbid H (Clear) Urine pH 5.5 (5.0-8.0) Ur Specific [place] 1.021 (1.001-1.035) Urine Protein 1+ H (Negative) Urine Glucose (UA) Negative (Negative) Urine Ketones Negative (Negative) Urine Blood Small H (Negative) Urine Nitrite Negative (Negative) Urine Bilirubin 1+ H (Negative) Urine Urobilinogen 4.0 (<2.0) mg/dL Ur Leukocyte Esterase Negative (Negative) Urine RBC 6 H (0-5) /hpf Urine WBC 15 H (0-5) /hpf Ur Squamous Epith Cells 1 (0-4) /hpf Amorphous Sediment Moderate H (None) /hpf Urine Bacteria Moderate H (None) /hpf Cellular Casts 8 (0) /lpf Hyaline Casts 4 H (0-2) /lpf Granular Casts 4 (0) /lpf Urine Mucus Rare H (None) /hpf Disposition Clinical Impression: Dehydration, Urinary tract infection, Altered mental status Disposition: HOME SELF-CARE Condition: Stable Instructions (If sedation given, give patient instructions): Urinary Tract Infection in Women (ED) Additional Instructions: Please return to the Emergency Department if symptoms worsen or any other concerns. Take antibiotics as prescribed. Continue to encourage water. Follow-up with PCP. Prescriptions: Cephalexin [Keflex] 500 mg PO BID 5 Days #10 cap Cephalexin [Keflex Susp] 10 ml PO BID 5 Days #100 ml Is patient prescribed a controlled substance at d/c from ED?: No Referrals: Nonstaff,Physician [Primary Care Provider] - 1-2 days
[2020-05-10] MEDS ORDERED: LORazepam 2 MG/ML INJ IV STA (10:40)
[2020-05-10 11:02] LABS: Albumin 2.9 g/dL (3.5-5.0); Calcium 8.1 mg/dL (8.4-10.2); Potassium 3.4 mmol/L (3.5-5.1); Total Bilirubin 2.1 mg/dL (0.2-1.3); Total Protein 5.9 g/dL (6.3-8.2)
[2020-05-10 11:06] LABS: Basophils % (A) 0 %; Eosinophils # (A) 0.1 k/uL (0-0.7); Eosinophils % (A) 1 %; HCT 34.4 % (34.0-46.0); HGB 11.1 gm/dL (11.4-16.0); Lymphocytes # (A) 0.2 k/uL (1.0-4.8); Lymphocytes % (A) 2 %; MCH 31.4 pg (25.0-35.0); MCHC 32.4 g/dL (31.0-37.0); Mean Platelet Volume 7.4; Monocytes # (A) 0.5 k/uL (0-1.0); Monocytes % (A) 7 %; Neutrophils % (A) 88 %; RBC 3.54 m/uL (3.80-5.40); RDW 15.1 % (11.5-15.5); WBC 6.9 k/uL (3.8-10.6)
--- NOTE | 2020-05-10 11:07 | XR ---
EXAMINATION TYPE: XR chest 2V DATE OF EXAM: 05/10/2020 COMPARISON: 04/19/2020 TECHNIQUE: PA and lateral views submitted. HISTORY: Altered mental status change FINDINGS: The lungs are clear and there is no pneumothorax, pleural effusion, or focal pneumonia. There is a la rge mass in the left lower lobe measuring 3 cm highly suggestive of malignancy. Diffuse hyperinflatio n. No pleural effusion. No interstitial edema. Mild prominence of the right hilum may represent promi nent pulmonary artery and pulmonary arterial hypertension. Diffuse osteopenia. Coarsened interstitium likely in degree of chronic interstitial lung disease. IMPRESSION: 1. COPD with bilateral pulmonary masses.
[2020-05-10 11:08] LABS: MCV 97.1 fL (80.0-100.0)
[2020-05-10 11:42] LABS: Platelet Count 89 k/uL (150-450)
[2020-05-10 12:07] LABS: Amorphous Sediment,Urine Moderate /hpf; Appearance,Urine Turbid (Clear); Bacteria,Urine Moderate /hpf; Bilirubin,Urine 1+ (Negative); Blood,Urine Small (Negative); Cellular Casts,Urine 8 /lpf (0); Color,Urine Dark Brown; Glucose,Urine (UA) Negative (Negative); Granular Casts,Urine 4 /lpf (0); Hyaline Casts,Urine 4 /lpf (0-2); Ketones,Urine Negative (Negative); Leukocyte Esterase,Urine Negative (Negative); Mucus,Urine Rare /hpf; Nitrite,Urine Negative (Negative); PH, Urine 5.5 (5.0-8.0); Protein,Urine 1+ (Negative); RBC,Urine 6 /hpf (0-5); Specific Gravity,Urine 1.021 (1.001-1.035); Squamous Epithelial Cell,Urine 1 /hpf (0-4); WBC,Urine 15 /hpf (0-5)
[2020-05-10] MEDS ORDERED: cefTRIAXone IN SWFI 1,000 MG/10 ML SYRINGE IVP STA (12:22)
[2020-05-10 13:24] VITALS: BP 110/53; PULSE 86; TEMP 97.7
== END 2020-05-10 13:24 | disposition home or self-care (01) ==
LOC: EC 09:24
DX: N39.0 Urinary tract infection, site not specified (principal); E86.0 Dehydration; R41.82 Altered mental status, unspecified; C18.9 Malignant neoplasm of colon, unspecified; C78.02 Secondary malignant neoplasm of left lung; C78.01 Secondary malignant neoplasm of right lung; F32.9 Major depressive disorder, single episode, unspecified; I10 Essential (primary) hypertension; Z79.899 Other long term (current) drug therapy; Z87.891 Personal history of nicotine dependence
CPT/HCPCS: 36415; 93005; 80053; 83605; 83735; 85025; 81001; 87086; 71046; 99285; 96374; 96375; 96361; J2060; J0696

== ENCOUNTER 2020-05-30 10:32 | Observation (INO) | payer MEDICARE, OTHER ==
[2020-05-30] MEDS ORDERED: SODIUM CHLORIDE 0.9% 1,000 ML IV ONE (10:38)
[2020-05-30] MEDS ORDERED: SODIUM CHLORIDE 0.9% 1,000 ML IV STA (10:38)
[2020-05-30 10:43] LABS: Glucose,Whole Blood 125 mg/dL (75-99)
--- NOTE | 2020-05-30 10:47 | ED ---
General Adult HPI - General Chief complaint: Weakness Stated complaint: Dehydration, Altered Time Seen by Provider: 05/30/20 10:35 Source: patient, EMS, RN notes reviewed, old records reviewed Mode of arrival: EMS Limitations: altered mental status - History of Present Illness Initial comments: This is a 74-year-old female with a past medical history significant for colon cancer with metastatic disease to the lung. Patient got chemo last on Thursday t she has not been eating or drinking anything since Thursday and now she is altered and getting hostile. Family states this is occurred in the past when she has not been eating or drinking after she has received chemo. 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 Patient is a very poor historian and is not very cooperative in answering any more questions. - Related Data Home Medications Medication Instructions Recorded Confirmed Diphenox-Atrop 2.5-0.025 mg 1 tab PO QID PRN 04/04/19 05/30/20 [Lomotil] carBAMazepine [TEGretol] 200 mg PO TID 04/04/19 05/30/20 levETIRAcetam [Keppra] 250 mg PO BID 04/04/19 05/30/20 levETIRAcetam [Keppra] 500 mg PO BID 04/04/19 05/30/20 Ciprofloxacin HCl [Cipro] 500 mg PO Q12HR 05/30/20 05/30/20 Levothyroxine Sodium [Tirosint] 75 mcg PO DAILY 05/30/20 05/30/20 Allergies Allergy/AdvReac Type Severity Reaction Status Date / Time No Known Allergies Allergy Verified 05/10/20 11:43 Review of Systems ROS Statement: Those systems with pertinent positive or pertinent negative responses have been documented in the HPI. ROS Other: All systems not noted in ROS Statement are negative. 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 History of Any Multi-Drug Resistant Organisms: None Reported Past Surgical History: Bowel Resection, Cholecystectomy Past Psychological History: Depression Smoking Status: Former smoker Past Alcohol Use History: None Reported Past Drug Use History: None Reported - Past Family History Mother Family Medical History: Cancer Additional Family Medical History / Comment(s): parkinson's Father Family Medical History: Cancer General Exam - General Exam Comments Initial Comments: GENERAL: Patient is cachectic in appearance ENT: Neck is soft and supple. No significant lymphadenopathy is noted. Oropharynx is clear. Moist mucous membranes. Neck has full range of motion without eliciting any pain. EYES: The sclera were anicteric and conjunctiva were pink and moist. Extraocular movements were intact and pupils were equal round and reactive to light. Eyelids were unremarkable. PULMONARY: Unlabored respirations. Good breath sounds bilaterally. No audible rales rhonchi or wheezing was noted. CARDIOVASCULAR: There is a regular rate and rhythm without any murmurs gallops or rubs. ABDOMEN: Soft and nontender with normal bowel sounds. SKIN: Skin is clear with no lesions or rashes and otherwise unremarkable. NEUROLOGIC: Patient is alert and oriented x3. Cranial nerves II through XII are grossly intact. Motor and sensory are also intact. Normal speech, volume and content. Symmetrical smile. MUSCULOSKELETAL: Normal extremities with adequate strength and full range of motion. LYMPHATICS: No significant lymphadenopathy is noted PSYCHIATRIC: Patient is agitated anytime we try to move her or try to get her to follow simple commands. Limitations: no limitations Course Vital Signs 05/30/20 05/30/20 10:34 12:37 Temperature 98.2 F Pulse Rate 110 H 90 Respiratory 16 18 Rate Blood Pressure 106/68 99/52 O2 Sat by Pulse 90 L 97 Oximetry Medical Decision Making - Medical Decision Making EKG shows normal sinus rhythm at 90 bpm [place] interval 242 QRS is 70 QT interval 32 QTC is 45. Patient's EKG shows no ST segment elevation or depression. - Lab Data Result diagrams: 05/30/20 10:43 05/30/20 10:43 Lab Results 05/30/20 05/30/20 05/30/20 Range/Units 10:41 10:43 10:43 WBC 6.9 (3.8-10.6) k/uL RBC 3.81 (3.80-5.40) m/uL Hgb 11.4 (11.4-16.0) gm/dL Hct 37.6 (34.0-46.0) % MCV 98.7 (80.0-100.0) fL MCH 29.9 (25.0-35.0) pg MCHC 30.3 L (31.0-37.0) g/dL RDW 15.5 (11.5-15.5) % Plt Count 76 L (150-450) k/uL Neutrophils % 87 % Lymphocytes % 3 % Monocytes % 7 % Eosinophils % 1 % Basophils % 0 % Neutrophils # 6.0 (1.3-7.7) k/uL Lymphocytes # 0.2 L (1.0-4.8) k/uL Monocytes # 0.5 (0-1.0) k/uL Eosinophils # 0.1 (0-0.7) k/uL Basophils # 0.0 (0-0.2) k/uL Hypochromasia Marked Macrocytosis Slight PT 13.6 H (9.0-12.0) sec INR 1.4 H (<1.2) APTT 22.7 (22.0-30.0) sec Sodium (137-145) mmol/L Potassium (3.5-5.1) mmol/L Chloride (98-107) mmol/L Carbon Dioxide (22-30) mmol/L Anion Gap mmol/L BUN (7-17) mg/dL Creatinine (0.52-1.04) mg/dL Est GFR (CKD-EPI)AfAm (>60 ml/min/1.73 sqM) Est GFR (CKD-EPI)NonAf (>60 ml/min/1.73 sqM) Glucose (74-99) mg/dL POC Glucose (mg/dL) 125 H (75-99) mg/dL POC Glu Lathe Spotter ID [place], Judit Calcium (8.4-10.2) mg/dL Total Bilirubin (0.2-1.3) mg/dL AST (14-36) U/L ALT (4-34) U/L Alkaline Phosphatase (38-126) U/L Troponin I (0.000-0.034) ng/mL Total Protein (6.3-8.2) g/dL Albumin (3.5-5.0) g/dL 05/30/20 05/30/20 Range/Units 10:43 10:43 WBC (3.8-10.6) k/uL RBC (3.80-5.40) m/uL Hgb (11.4-16.0) gm/dL Hct (34.0-46.0) % MCV (80.0-100.0) fL MCH (25.0-35.0) pg MCHC (31.0-37.0) g/dL RDW (11.5-15.5) % Plt Count (150-450) k/uL Neutrophils % % Lymphocytes % % Monocytes % % Eosinophils % % Basophils % % Neutrophils # (1.3-7.7) k/uL Lymphocytes # (1.0-4.8) k/uL Monocytes # (0-1.0) k/uL Eosinophils # (0-0.7) k/uL Basophils # (0-0.2) k/uL Hypochromasia Macrocytosis PT (9.0-12.0) sec INR (<1.2) APTT (22.0-30.0) sec Sodium 136 L (137-145) mmol/L Potassium 3.6 (3.5-5.1) mmol/L Chloride 111 H (98-107) mmol/L Carbon Dioxide 18 L (22-30) mmol/L Anion Gap 7 mmol/L BUN 28 H (7-17) mg/dL Creatinine 1.19 H (0.52-1.04) mg/dL Est GFR (CKD-EPI)AfAm 53 (>60 ml/min/1.73 sqM) Est GFR (CKD-EPI)NonAf 46 (>60 ml/min/1.73 sqM) Glucose 129 H (74-99) mg/dL POC Glucose (mg/dL) (75-99) mg/dL POC Glu Lathe Spotter ID Calcium 7.6 L (8.4-10.2) mg/dL Total Bilirubin 1.6 H (0.2-1.3) mg/dL AST 45 H (14-36) U/L ALT 28 (4-34) U/L Alkaline Phosphatase 162 H (38-126) U/L Troponin I 0.021 (0.000-0.034) ng/mL Total Protein 5.8 L (6.3-8.2) g/dL Albumin 2.7 L (3.5-5.0) g/dL Disposition Clinical Impression: General weakness, Altered mental status, Dehydration Disposition: ADMITTED IP TO THIS HOSP Referrals: None,Stated [REFERRING] - 1-2 days Time of Disposition: 12:55
[2020-05-30 11:08] LABS: Basophils % (A) 0 %; Eosinophils # (A) 0.1 k/uL (0-0.7); Eosinophils % (A) 1 %; HCT 37.6 % (34.0-46.0); HGB 11.4 gm/dL (11.4-16.0); Hypochromasia Marked; Lymphocytes # (A) 0.2 k/uL (1.0-4.8); Lymphocytes % (A) 3 %; MCH 29.9 pg (25.0-35.0); MCHC 30.3 g/dL (31.0-37.0); MCV 98.7 fL (80.0-100.0); Macrocytosis Slight; Mean Platelet Volume 8.1; Monocytes # (A) 0.5 k/uL (0-1.0); Monocytes % (A) 7 %; Neutrophils % (A) 87 %; Platelet Count 76 k/uL (150-450); RBC 3.81 m/uL (3.80-5.40); RDW 15.5 % (11.5-15.5); WBC 6.9 k/uL (3.8-10.6)
[2020-05-30] MEDS ORDERED: LORazepam 2 MG/ML INJ IV STA (11:09)
[2020-05-30 11:12] LABS: Albumin 2.7 g/dL (3.5-5.0); Calcium 7.6 mg/dL (8.4-10.2); INR 1.4 (<1.2); Partial Thromboplastin Time 22.7 sec (22.0-30.0); Potassium 3.6 mmol/L (3.5-5.1); Prothrombin Time 13.6 sec (9.0-12.0); Total Bilirubin 1.6 mg/dL (0.2-1.3); Total Protein 5.8 g/dL (6.3-8.2)
--- NOTE | 2020-05-30 12:01 | XR ---
EXAMINATION TYPE: XR chest 2V DATE OF EXAM: 05/30/2020 COMPARISON: 220 HISTORY: Shortness of breath TECHNIQUE: Frontal and lateral views of the chest are obtained. FINDINGS: Scattered senescent parenchymal changes noted. Hyperinflation compatible with COPD. Stable mass left lower lobe. Additional patchy density right lower lobe. Masslike density right media l lung base is less conspicuous on today's study. Heart size is stable. Mediastinal structures are stable and grossly unremarkable. No evidence for hilar prominence. Degenerative changes dorsal spine. IMPRESSION: 1. Stable mass left lower lobe. Additional patchy density right lower lobe. Masslike density right me dial lung base is less conspicuous on today's study.
--- NOTE | 2020-05-30 12:09 | CT ---
EXAMINATION TYPE: CT brain wo con DATE OF EXAM: 05/30/2020 COMPARISON: CT brain 04/19/2020, 04/04/2019 HISTORY: Altered mental status CT DLP: 1098.4 mGycm Automated exposure control for dose reduction was used. Helical imaging through the brain FINDINGS: The exam is unchanged. Cerebral atrophy is present and somewhat asymmetric greater on the left than o n the right, there is no hydrocephalus or hemorrhage. Mastoid air cells show some fluid attenuation t hat is developed on the left at seen on previous exam, right-sided mastoid fluid was seen on prior ex am. Cerebral vascular calcifications are present. IMPRESSION: STABLE EXAM, NO ACUTE ABNORMALITY. ASYMMETRIC ATROPHY IS INDETERMINATE AND CHRONIC, CONSIDER MRI I NDICATED. THERE IS SOME FLUID PRESENT WITHIN THE MASTOID AIR CELLS DESCRIBED.
[2020-05-30 13:24] LABS: Amorphous Sediment,Urine Occasional /hpf; Appearance,Urine Turbid (Clear); Bacteria,Urine Rare /hpf; Bilirubin,Urine 1+ (Negative); Blood,Urine Negative (Negative); Color,Urine Dark Brown; Glucose,Urine (UA) Negative (Negative); Ketones,Urine Negative (Negative); Leukocyte Esterase,Urine Negative (Negative); Mucus,Urine Rare /hpf; Nitrite,Urine Negative (Negative); PH, Urine 5.5 (5.0-8.0); Protein,Urine 1+ (Negative); Specific Gravity,Urine 1.022 (1.001-1.035); Squamous Epithelial Cell,Urine 1 /hpf (0-4); WBC,Urine 8 /hpf (0-5)
[2020-05-30 13:29] LABS: Amphetamine Screen,Urine Not Detected (NotDetected); Barbiturate Screen,Urine Not Detected (NotDetected); Benzodiazepines Screen,Urine Not Detected (NotDetected); Cocaine Screen,Urine Not Detected (NotDetected); Methadone Screen, Urine Not Detected (NotDetected); Opiate Screen,Urine Not Detected (NotDetected); Oxycodone Screen, Urine Not Detected (NotDetected); Phencyclidine Screen,Urine Not Detected (NotDetected); Tricyclic Antidepressant,Urine Not Detected (NotDetected); Urn Cannabinoid Scrn Not Detected (NotDetected)
[2020-05-30] MEDS ORDERED: cefTRIAXone IN SWFI 1,000 MG/10 ML SYRINGE IVP STA (13:45)
[2020-05-30] MEDS ORDERED: LORazepam 2 MG/ML INJ IV PRN (13:49)
--- NOTE | 2020-05-30 14:23 | P.HPIM ---
History of Present Illness This is a pleasant 74 years old female with past medical history of colon cancer and seizure disorders with metastasis to the lung, hypertension, she has history of surgical resection of the colon about 2 years ago, she follows up with Dr. Chelsea Huggins for clinical trial for chemotherapy, last chemotherapy was on Thursday. As per daughter at bedside this is the fourth admission in one month and a half with altered mental status, he she thinks it was due to UTI issues time she was treated with antibiotics and hydration her mentation improves and would be discharged. presents because of altered mental status. After she got the chemo therapy on Thursday, Thursday she felt a little weak however on Thursday she become confused and lethargic and when she does that she states leave me alone, get out and she answers no questions. It was also confused today to report her here to the emergency room, on Thursday there was suspicion of UTI they prescribed her off antibiotics at [facility], it caused her itching and she was wished to Thursday however daughter is not sure what kind of antibiotics was prescribed to her. Cipro is listed one of her home medication. Doppler denies any seizure-like activity, she has history of seizures and follow-up with Dr. Caro, currently she is on Keppra and Tegretol but she did not take her medication today. She was educated in the emergency room and she received 1 dose of Ativan and she is calm, currently patient is lethargic and she cannot provide information and she does not follow commands. On admission she was slightly tachycardic and hypotensive, heart rate 1 1090, blood pressure 99/52. She is saturating 97% on 2 L oxygen via nasal cannula. Labs show an unremarkable CBC, INR is 1.4, BMP showing mild increase in the creatinine at 1.1, which is baseline Osvaldo 1.0-1.1. Sodium is 136, her saphenous class are normal. Liver enzymes not elevated except for AST mildly elevated at 45, total bilirubin is 1.6. UA is modestly suspicious of infection CT of the brain: Showing no acute abnormality is symmetric atrophy and consider MRI Chest x-ray shows stable mass in the left lower lobe and additional density in the right lower lobe, masslike density in the right medial lung base is less conspicuous on today's studies. In the emergency room patient received ceftriaxone, Ativan, normal saline bolus of 1 L. Oncology team were consulted from emergency room Review of Systems n/a 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 History of Any Multi-Drug Resistant Organisms: None Reported Past Surgical History: Bowel Resection, Cholecystectomy Past Psychological History: Depression Smoking Status: Former smoker Past Alcohol Use History: None Reported Past Drug Use History: None Reported - Past Family History Mother Family Medical History: Cancer Additional Family Medical History / Comment(s): parkinson's Father Family Medical History: Cancer Medications and Allergies Home Medications Medication Instructions Recorded Confirmed Type Diphenox-Atrop 2.5-0.025 mg 1 tab PO QID PRN 04/04/19 05/30/20 History [Lomotil] carBAMazepine [TEGretol] 200 mg PO TID 04/04/19 05/30/20 History levETIRAcetam [Keppra] 250 mg PO BID 04/04/19 05/30/20 History levETIRAcetam [Keppra] 500 mg PO BID 04/04/19 05/30/20 History Ciprofloxacin HCl [Cipro] 500 mg PO Q12HR 05/30/20 05/30/20 History Levothyroxine Sodium [Tirosint] 75 mcg PO DAILY 05/30/20 05/30/20 History Allergies Allergy/AdvReac Type Severity Reaction Status Date / Time No Known Allergies Allergy Verified 05/10/20 11:43 Physical Exam Vitals: Vital Signs Temp Pulse Resp BP Pulse Ox 05/30/20 12:37 90 18 99/52 97 05/30/20 10:34 98.2 F 110 H 16 106/68 90 L Intake and Output 05/29/20 05/30/20 05/30/20 22:59 06:59 14:59 Other: Weight 49.895 kg -GENERAL: The patient is confused, she does not follow commands however she opens eyes to verbal and tactile stimuli HEENT: Pupils are round and equally reacting to light. EOMI. No scleral icterus. No conjunctival pallor. Normocephalic, atraumatic. No pharyngeal erythema. No thyromegaly. CARDIOVASCULAR: S1 and S2 present. No murmurs, rubs, or gallops. PULMONARY: Chest is clear to auscultation, no wheezing or crackles. Somewhat tachypneic (not on home oxygen) ABDOMEN: Soft, nontender, nondistended, normoactive bowel sounds. No palpable organomegaly. MUSCULOSKELETAL: No joint swelling or deformity. EXTREMITIES: No cyanosis, clubbing, or pedal edema. NEUROLOGICAL: Gross neurological examination did not reveal any focal deficits. SKIN: No rashes. No petechiae Results CBC & Chem 7: 05/30/20 10:43 05/30/20 10:43 Labs: Abnormal Lab Results - Last 24 Hours (Table) 05/30/20 05/30/20 05/30/20 Range/Units 10:41 10:43 10:43 MCHC 30.3 L (31.0-37.0) g/dL Plt Count 76 L (150-450) k/uL Lymphocytes # 0.2 L (1.0-4.8) k/uL PT 13.6 H (9.0-12.0) sec INR 1.4 H (<1.2) Sodium (137-145) mmol/L Chloride (98-107) mmol/L Carbon Dioxide (22-30) mmol/L BUN (7-17) mg/dL Creatinine (0.52-1.04) mg/dL Glucose (74-99) mg/dL POC Glucose (mg/dL) 125 H (75-99) mg/dL Calcium (8.4-10.2) mg/dL Total Bilirubin (0.2-1.3) mg/dL AST (14-36) U/L Alkaline Phosphatase (38-126) U/L Total Protein (6.3-8.2) g/dL Albumin (3.5-5.0) g/dL Urine Appearance (Clear) Urine Protein (Negative) Urine Bilirubin (Negative) Urine WBC (0-5) /hpf Urine WBC Clumps (None) /hpf Amorphous Sediment (None) /hpf Urine Bacteria (None) /hpf Urine Mucus (None) /hpf 05/30/20 05/30/20 Range/Units 10:43 13:05 MCHC (31.0-37.0) g/dL Plt Count (150-450) k/uL Lymphocytes # (1.0-4.8) k/uL PT (9.0-12.0) sec INR (<1.2) Sodium 136 L (137-145) mmol/L Chloride 111 H (98-107) mmol/L Carbon Dioxide 18 L (22-30) mmol/L BUN 28 H (7-17) mg/dL Creatinine 1.19 H (0.52-1.04) mg/dL Glucose 129 H (74-99) mg/dL POC Glucose (mg/dL) (75-99) mg/dL Calcium 7.6 L (8.4-10.2) mg/dL Total Bilirubin 1.6 H (0.2-1.3) mg/dL AST 45 H (14-36) U/L Alkaline Phosphatase 162 H (38-126) U/L Total Protein 5.8 L (6.3-8.2) g/dL Albumin 2.7 L (3.5-5.0) g/dL Urine Appearance Turbid H (Clear) Urine Protein 1+ H (Negative) Urine Bilirubin 1+ H (Negative) Urine WBC 8 H (0-5) /hpf Urine WBC Clumps Few H (None) /hpf Amorphous Sediment Occasional H (None) /hpf Urine Bacteria Rare H (None) /hpf Urine Mucus Rare H (None) /hpf Assessment and Plan Assessment: Altered mental status, mostly due to Metabolic encephalopathy Symmetric atrophy of the brain, rule out bladder lesion Acute urinary tract infection, Colon cancer with metastasis to the lung, stage IV As per daughter patient is full code Hypertension Plan: This is a pleasant 74 years old female with history of colon cancer with metastasis to the lung presented with altered mental status, suspicious for metabolic encephalopathy from UTI however there is asymmetry of the brain MRI is recommended. We'll contact consult neurology service, continue with antibio tics ceftriaxone and follow-up urine culture. Follow-up recommendation by oncologist. Change oral to IV medication if she cannot swallow. Labs and medication were reviewed.. Continue same treatment. Continue with symptomatic treatment. Resume home medication. Monitor lytes and vitals. DVT and GI prophylaxis. Further recommendations of the clinical course of the patient DVT prophylaxis: Subcutaneous heparin GI Prophylaxis: Pepcid Prognosis is guarded
[2020-05-30] MEDS: levETIRAcetam IV 750 MG in SODIUM CHLORIDE 0.9% 100 ML IVPB SCH ×2 (16:34→22:42)
[2020-05-30] MEDS: DEXTROSE 5%-0.9% NACL 1,000 ML IV SCH (16:38)
--- NOTE | 2020-05-30 17:58 | P.CNNES ---
History of Present Illness Consult date: 05/30/20 Requesting physician: Alexey E Sheet Reason for Consult: altered mental status History of Present Illness: This is a 74-year-old the female with medical history of seizure disorder, stage IV colon cancer with metastasis to the lung, resection of the colon about 2 years ago on chemotherapy, hypertension --- that presented to emergency department on 05/30/2020 for altered mental status and the being hostile. Patient last chemotherapy this past Thursday. Then on Thursday she felt a little weak. On Thursday at patient became more confused and lethargic. Per the doctor patient was prescribed the an antibiotic for possible urinary tract infection recently she does not know the medication per the medical record the her home medication was Cipro. Per the patient daughter she did not have any seizure-like activity. I spoke with patient's daughter (Kimberlyn) via phone. She had Chemotherapy at [facility] this past Thursday lasting for 12 hours, then day she felt tired. Then today got agitated and was telling her daughter to get out of the room. The daughter said this has been going on for 12 weeks and are similiar in presenation and happens after chemotherapy. She gets Chemotherapy every 3 weeks. Per daughter this happens because of dehydration and infection. Her seizure are different than this where she gets GTC's or unable to verbalize. Her last seizure as about 5 years ago. Upon presentation the patient's blood pressure was 106/68, the heart rate of 110, respiratory of 16, temperature of 98.2 Fahrenheit axillary and the pulse ox of 90 L at room air. Workup in the ED consisted of CT of the head which was reported as stable exam, no acute abnormality. Asymmetrical atrophy is indeterminant and chronic, consider MRI as indicated. There is some mild fluid present within the mastoid air cells. I reviewed the CT of the head and I felt patient has more significant atrophy versus encephalomalacia over the left frontal parietal/temporal region compared to the right. The patient CT of the head on the 04/19/2020 and was reported the patient has mild to moderate diffuse cerebral atrophy greatest over the left frontal parietal lobe redemonstrated. No significant change from prior CT. EKG was done and shows normal sinus rhythm, ventricle rate of 98. Per the medical record the patient has history of seizure and that she is on Keppra as well as the Tegretol. Calcium was 7.6 Patient was seen by Dr. Hawthorne (neuro-hospitalist) and are facility on 04/20/2020 for altered mental status. In his note he mentions per the patient that she had a seizure since at the age of [age] years. She is on Tegretol 200 mg 3 times a day and Keppra 750 twice a day. Patient follows up with Dr. Soto regarding her seizure. At that time MRI of the brain with and without contrast was ordered by oncology the patient was adamant to go home. Her Tegretol level at that time was less than 3 even though she is on Tegretol 200 mg 3 times a day. Attention note possibly she could be noncompliant although the patient states that she's followed compliant taking the medication. Past Medical History Past Medical History: Cancer, COPD, Hypertension, Pneumonia, Seizure Disorder, Thyroid Disorder Additional Past Medical History / Comment(s): 11/2017 colon cancer stage IV with mets to lungs-pt receiving chemotherapy thru [facility]-last dose received 05/28/20-hamlet states pt always has weakness/ams/dehydration after receiving chemo- once she starts to rehydrated, hamlet states she will want to leave and can get agitated with staff, thrombocytopenia, anemia, currently being treated for UTI, past seizure 2 years ago, newly diagnosed thyroid disease, constipation. History of Any Multi-Drug Resistant Organisms: None Reported Past Surgical History: Bowel Resection, Cholecystectomy Additional Past Surgical History / Comment(s): bowel resection d/t cancer, port placed then removed, bilateral cataract removals. Past Anesthesia/Blood Transfusion Reactions: No Reported Reaction Smoking Status: Former smoker - Past Family History Mother Family Medical History: Musculoskeletal Disorder, Neurologic Disorder Additional Family Medical History / Comment(s): parkinson's Father History Unknown: Yes Family Medical History: Cancer Medications and Allergies Home Medications Medication Instructions Recorded Confirmed Type Diphenox-Atrop 2.5-0.025 mg 1 tab PO QID PRN 04/04/19 05/30/20 History [Lomotil] carBAMazepine [TEGretol] 200 mg PO TID 04/04/19 05/30/20 History levETIRAcetam [Keppra] 250 mg PO BID 04/04/19 05/30/20 History levETIRAcetam [Keppra] 500 mg PO BID 04/04/19 05/30/20 History Ciprofloxacin HCl [Cipro] 500 mg PO Q12HR 05/30/20 05/30/20 History Levothyroxine Sodium [Tirosint] 75 mcg PO DAILY 05/30/20 05/30/20 History Allergies Allergy/AdvReac Type Severity Reaction Status Date / Time No Known Allergies Allergy Verified 05/10/20 11:43 Physical Examination - Vital Signs Vital Signs: Vital Signs Temp Pulse Pulse Resp BP BP Pulse Ox 05/30/20 14:50 97.9 F 63 16 116/66 99 05/30/20 14:08 85 16 110/54 98 05/30/20 12:37 90 18 99/52 97 05/30/20 10:34 98.2 F 110 H 16 106/68 90 L Intake and Output 05/30/20 05/30/20 05/30/20 06:59 14:59 22:59 Other: Weight 49.895 kg 49.895 kg GENERAL: The patient is lying in bed and was agitated that she got the wrong food. CHEST: The heart rate is regular rate rhythm. No murmurs to auscultation. LUNG: Clear to auscultation bilaterally no wheezing noted throughout. Not labored breathing. ABDOMEN/GI: Bowel sounds present in all 4 quadrants. No tenderness to palpation throughout. NEUROLOGICAL: Higher mental function: The patient is awake, alert, oriented to self, place and time. Patient is following commands. No aphasia and no neglect. Cranial nerves: The pupils are round, equal and reactive to light and accommodation. Visual stevens are full to confrontation throughout. Extraocular movement is intact no nystagmus is noted. Facial sensation is normal to touch throughout. The facial strength is normal throughout. Hearing is normal bilaterally to hand rub. Tongue is midline and moved [id number] without any difficulty. No dysarthria is noted. Shoulder shrug is normal bilaterally. Motor: Gait is defered. The strength is 5 over 5 throughout. Normal tone and bulk. Cerebellum: Normal finger to nose bilaterally. Sensation: Sensation is normal to touch throughout. Reflexes (right/left): 1+ Plantars are downgoing bilaterally. Results UA was negative for urinary tract infection. Urine drug screen was negative Prognosis study the PT 13.6, INR 1.4, PTT of 22.7. Her current sodium is 136 on prior hospitalization was also 136 otherwise it ranges 138 and above. AST of 45, ALTs 28. - Laboratory Findings CBC and BMP: 05/30/20 10:43 05/30/20 10:43 Abnormal Lab Findings: Abnormal Labs 05/30/20 05/30/20 05/30/20 10:41 10:43 10:43 MCHC 30.3 L Plt Count 76 L Lymphocytes # 0.2 L PT 13.6 H INR 1.4 H Sodium Chloride Carbon Dioxide BUN Creatinine Glucose POC Glucose (mg/dL) 125 H Calcium Total Bilirubin AST Alkaline Phosphatase Total Protein Albumin Urine Appearance Urine Protein Urine Bilirubin Urine WBC Urine WBC Clumps Amorphous Sediment Urine Bacteria Urine Mucus 05/30/20 05/30/20 10:43 13:05 MCHC Plt Count Lymphocytes # PT INR Sodium 136 L Chloride 111 H Carbon Dioxide 18 L BUN 28 H Creatinine 1.19 H Glucose 129 H POC Glucose (mg/dL) Calcium 7.6 L Total Bilirubin 1.6 H AST 45 H Alkaline Phosphatase 162 H Total Protein 5.8 L Albumin 2.7 L Urine Appearance Turbid H Urine Protein 1+ H Urine Bilirubin 1+ H Urine WBC 8 H Urine WBC Clumps Few H Amorphous Sediment Occasional H Urine Bacteria Rare H Urine Mucus Rare H Assessment and Plan Assessment: Altered mental status, likely due to delirium with mild encephalopathy Is a seizure disorder As metastatic colon cancer Is large 3 cm left lower lobe mass suspicious of malignancy. Plan: -We'll resume the Keppra 750 mg twice a day as well as Tegretol 200 mg 3 times a day. -I ordered a Keppra level as well as carbamazepine level. On the last the visits her carbamazepine level was less than 3 and that was on 04/20/2020. -I spoke with the patient's daughter (Kimberlyn) and that she stated that she was to hold off on getting MRI of the brain with and without (on last admission Oncology ordered it but was not done since patient wanted to be discharged). I also don't believe that the MRI the brain with and without is needed at this time as an inpatient. Patient is back to her baseline and there is no focality my examination. If this is needed we can consider getting as an outpatient. Unless oncology and desires to get as an inpatient then we'll leave it up to them. EEG is not indicated at this point the patient is back to her baseline. Currently the patient is on ceftriaxone for possible degenerative tract infection recommend avoiding cephalosporin which can cause encephalopathy is possible. The plan was discussed with the patient as well as her daughter Kimberlyn over the phone. Thank you for the consult. [facility] NeurohospitalSola rowe. Neuro-hospitalist Time with Patient: Greater than 30
[2020-05-30] MEDS: carBAMazepine 200 MG TAB PO SCH ×2 (19:19→21:54)
[2020-05-31 08:19] LABS: Albumin 2.6 g/dL (3.5-5.0); Bilirubin, Delta 0.6 mg/dL (0.0-0.2); Bilirubin,Unconjugated 0.1 mg/dL (0.0-1.1); Calcium 7.7 mg/dL (8.4-10.2); Potassium 3.9 mmol/L (3.5-5.1); Total Bilirubin 0.7 mg/dL (0.2-1.3); Total Protein 5.6 g/dL (6.3-8.2)
[2020-05-31 08:41] LABS: HCT 37.1 % (34.0-46.0); HGB 11.3 gm/dL (11.4-16.0); Hypochromasia Marked; MCH 30.9 pg (25.0-35.0); MCHC 30.4 g/dL (31.0-37.0); MCV 101.4 fL (80.0-100.0); Macrocytosis Slight; Mean Platelet Volume 7.8; RBC 3.66 m/uL (3.80-5.40); RDW 15.1 % (11.5-15.5); WBC 5.6 k/uL (3.8-10.6)
[2020-05-31 09:25] LABS: Platelet Count 63 k/uL (150-450)
[2020-05-31 10:34] LABS: Amorphous Sediment,Urine Rare /hpf; Appearance,Urine Cloudy (Clear); Bacteria,Urine Rare /hpf; Bilirubin,Urine Negative (Negative); Blood,Urine Negative (Negative); Color,Urine Yellow; Glucose,Urine (UA) Negative (Negative); Hyaline Casts,Urine 1 /lpf (0-2); Ketones,Urine Negative (Negative); Leukocyte Esterase,Urine Trace (Negative); Mucus,Urine Rare /hpf; Nitrite,Urine Negative (Negative); PH, Urine 5.5 (5.0-8.0); Protein,Urine 1+ (Negative); RBC,Urine 2 /hpf (0-5); Squamous Epithelial Cell,Urine 3 /hpf (0-4); Urobilinogen,Urine <2.0 mg/dL (<2.0); WBC,Urine 6 /hpf (0-5)
[2020-05-31] MEDS: carBAMazepine 200 MG TAB PO SCH ×2 (10:45→17:01)
[2020-05-31 11:28] LABS: Band Neutrophils % 1 %; Eosinophils # (M) 0.22 k/uL (0-0.7); Lymphocytes # (M) 1.34 k/uL (1.0-4.8); Monocytes # (M) 0.67 k/uL (0-1.0); Neutrophils % (M) 59 %; Nucleated Red Blood Cells 0 /100 WBC (0-0); Poikilocytosis (M) Present; Total Cells Counted 100
[2020-05-31] MEDS: levETIRAcetam IV 750 MG in SODIUM CHLORIDE 0.9% 100 ML IVPB SCH (11:52)
[2020-05-31] MEDS: DEXTROSE 5%-0.9% NACL 1,000 ML IV SCH (11:57)
--- NOTE | 2020-05-31 11:57 | US ---
EXAMINATION TYPE: US renals and bladder DATE OF EXAM: 05/31/2020 COMPARISON: NONE CLINICAL HISTORY: 74-year-old female Recurrent UTI's TECHNIQUE: Multiple sonographic images of the kidneys and bladder are obtained. FINDINGS: EXAM MEASUREMENTS: Right Kidney: 9.9 x 4.3 x 4.8 cm Left Kidney: 7.9 x 3.8 x 3.7 cm No hydronephrosis on either side. At the left upper pole, there is a 2 mm benign cortical cyst. Bladder is suboptimally distended. Unable to exclude mass effect onto the dome of the bladder on the sagittal image. [employer] Director notes:Midline pelvis: 11.0 x 9.6 x 15.9cm complex solid cystic vascular mass seen super ior to bladder, possible ovarian mass IMPRESSION: 1. No hydronephrosis. 2. Apparent mass effect on to the dome of the bladder secondary to a midline 15.9 cm complex cystic m ass with internal soft tissue components and septations. Consider an ovarian etiology such as mucinou s cystadenoma or adenocarcinoma. Appropriate workup and management recommended.
[2020-05-31 12:21] VITALS: BP 125/69; PULSE 81; RESP 16; TEMP 97.9
[2020-05-31 13:11] VITALS: BMI 17.7
--- NOTE | 2020-05-31 13:17 | P.CONS ---
History of Present Illness - Reason for Consult Consult date: 05/31/20 colon adenocarcinoma Requesting physician: Osman Graves - Chief Complaint AMS - History of Present Illness Mrs. Regan is a 74-year-old female patient of Dr. Fonseca with a history of metastatic colon cancer. Diagnosed September 2017 when she presented with progressive abdominal pain, intermittent nausea and vomiting, diarrhea, 25 pound weight loss in about 2-[address] was unremarkable, she had her first colonoscopy, revealed cecal circumferential mass, biopsy positive for tubulovillous adenoma, high-grade dysplasia. CEA 3.7. 11/26/17 she had a right c olectomy, pathology revealed grade 2, mucinous invasive carcinoma, T3, 12/16 lymph nodes positive for metastatic disease. 01/11/18 CT of the chest small bilateral lung nodules. She was KRAS positive, MSI stable. She started [id number] regimen. Follow-up scans were improved. She completed 9 cycles . Treatment was stopped due to possible progression in the lung. Patient decided against a biopsy. She was placed on monitoring. 08/03/18 further increase in the size of lung nodules. 08/26/18 CT-guided biopsy of the left lower lobe lung nodule positive for carcinoma consistent with a colon primary. 10/16 she started FOLFIRI/avastin regimen. Treatment follow-up scan showed stable disease. She had a total of 9 cycles, discontinued 01/14 due to progressive fatigue. She was switched to Avastin/Xeloda. 04/15 imaging showed disease progression of the lung. She was placed on regorafinib in April 2019 and stayed on 120 mg/day 1-21 every 28 days until 09/15 when repeat imaging showed disease progression. She did not want to try clinical trial, she was placed on lawn surface September 2019. Follow-up scans 11/17 showed slight progression of her disease. She continued at that time. 02/07/20 scan revealed more convincing evidence of disease progression. At that time patient was told that unfortunately there are currently no further FDA approved therapies. She finally opted for a phase I clinical trial at [facility]. She had a lab draw locally in March, patient is not been seen in our office since. Patient is admitted with confusion, dehydration and UTI. Patient is rather aggressive and unpleasant. She was not cooperative with the exam or my questions. She was able to tell me that she is on a trial and that this happens after each treatment. Review of Systems 14 point ROS is as stated in HPI Past Medical History Past Medical History: Cancer, COPD, Hypertension, Pneumonia, Seizure Disorder, Thyroid Disorder Additional Past Medical History / Comment(s): 11/2017 colon cancer stage IV with mets to lungs-pt receiving chemotherapy thru [place] [facility]-last dose received 05/28/20-hamlet states pt always has weakness/ams/dehydration after receiving chemo- once she starts to rehydrated, hamlet states she will want to leave and can get agitated with staff, thrombocytopenia, anemia, currently being treated for UTI, past seizure 2 years ago, newly diagnosed thyroid disease, constipation. History of Any Multi-Drug Resistant Organisms: None Reported Past Surgical History: Bowel Resection, Cholecystectomy Additional Past Surgical History / Comment(s): bowel resection d/t cancer, port placed then removed, bilateral cataract removals. Past Anesthesia/Blood Transfusion Reactions: No Reported Reaction Past Psychological History: Anxiety Smoking Status: Former smoker Past Alcohol Use History: Unable to Obtain Past Drug Use History: Unable to Obtain - Past Family History Mother Family Medical History: Musculoskeletal Disorder, Neurologic Disorder Additional Family Medical History / Comment(s): parkinson's Father History Unknown: Yes Family Medical History: Cancer Medications and Allergies Home Medications Medication Instructions Recorded Confirmed Type Diphenox-Atrop 2.5-0.025 mg 1 tab PO QID PRN 04/04/19 05/30/20 History [Lomotil] carBAMazepine [TEGretol] 200 mg PO TID 04/04/19 05/30/20 History levETIRAcetam [Keppra] 250 mg PO BID 04/04/19 05/30/20 History levETIRAcetam [Keppra] 500 mg PO BID 04/04/19 05/30/20 History Ciprofloxacin HCl [Cipro] 500 mg PO Q12HR 05/30/20 05/30/20 History Levothyroxine Sodium [Tirosint] 75 mcg PO DAILY 05/30/20 05/30/20 History Allergies Allergy/AdvReac Type Severity Reaction Status Date / Time No Known Allergies Allergy Verified 05/10/20 11:43 Physical Exam Vitals: Vital Signs Temp Pulse Pulse Resp BP BP Pulse Ox 05/31/20 04:19 98.0 F 86 20 106/59 95 05/30/20 23:22 93 L 05/30/20 21:00 97.9 F 112 H 22 158/54 89 L 05/30/20 16:00 63 16 05/30/20 14:50 97.9 F 63 16 116/66 99 05/30/20 14:08 85 16 110/54 98 05/30/20 12:37 90 18 99/52 97 05/30/20 10:34 98.2 F 110 H 16 106/68 90 L Intake and Output 05/30/20 05/31/20 05/31/20 22:59 06:59 14:59 Output Total 427 Balance -427 Output: Post Void Residual 427 Other: Voiding Method Diaper Incontinent # Voids 1 1 Weight 49.895 kg Pt unwilling to allow me to perform full exam - Constitutional General appearance: no acute distress, thin - EENT mouth is covered in what looks like liquid medicine, refuses to show me her tongue Eyes: anicteric sclerae - Respiratory Respiratory: bilateral: CTA (anterior and lateral, pt will not sit up) - Cardiovascular Heart sounds: normal: S1, S2 leg Peripheral Edema: bilateral: None (visual inspection) - Gastrointestinal General gastrointestinal: normal bowel sounds, soft - Psychiatric Alert, oriented to self, place. Mood is angry, irritable. Is not able to tell me what treatment she is on for cancer, or how many times she has had it Results CBC & Chem 7: 05/31/20 07:33 05/31/20 07:33 Labs: Abnormal Lab Results - Last 24 Hours (Table) 05/30/20 05/30/20 05/30/20 Range/Units 10:41 10:43 10:43 MCHC 30.3 L (31.0-37.0) g/dL Plt Count 76 L (150-450) k/uL Lymphocytes # 0.2 L (1.0-4.8) k/uL PT 13.6 H (9.0-12.0) sec INR 1.4 H (<1.2) Sodium (137-145) mmol/L Chloride (98-107) mmol/L Carbon Dioxide (22-30) mmol/L BUN (7-17) mg/dL Creatinine (0.52-1.04) mg/dL Glucose (74-99) mg/dL POC Glucose (mg/dL) 125 H (75-99) mg/dL Calcium (8.4-10.2) mg/dL Total Bilirubin (0.2-1.3) mg/dL Delta Bilirubin (0.0-0.2) mg/dL AST (14-36) U/L Alkaline Phosphatase (38-126) U/L Total Protein (6.3-8.2) g/dL Albumin (3.5-5.0) g/dL Urine Appearance (Clear) Urine Protein (Negative) Urine Bilirubin (Negative) Urine WBC (0-5) /hpf Urine WBC Clumps (None) /hpf Amorphous Sediment (None) /hpf Urine Bacteria (None) /hpf Urine Mucus (None) /hpf 05/30/20 05/30/20 05/31/20 Range/Units 10:43 13:05 07:33 MCHC (31.0-37.0) g/dL Plt Count (150-450) k/uL Lymphocytes # (1.0-4.8) k/uL PT (9.0-12.0) sec INR (<1.2) Sodium 136 L (137-145) mmol/L Chloride 111 H 118 H (98-107) mmol/L Carbon Dioxide 18 L 20 L (22-30) mmol/L BUN 28 H 25 H (7-17) mg/dL Creatinine 1.19 H (0.52-1.04) mg/dL Glucose 129 H 113 H (74-99) mg/dL POC Glucose (mg/dL) (75-99) mg/dL Calcium 7.6 L 7.7 L (8.4-10.2) mg/dL Total Bilirubin 1.6 H (0.2-1.3) mg/dL Delta Bilirubin 0.6 H (0.0-0.2) mg/dL AST 45 H (14-36) U/L Alkaline Phosphatase 162 H 135 H (38-126) U/L Total Protein 5.8 L 5.6 L (6.3-8.2) g/dL Albumin 2.7 L 2.6 L (3.5-5.0) g/dL Urine Appearance Turbid H (Clear) Urine Protein 1+ H (Negative) Urine Bilirubin 1+ H (Negative) Urine WBC 8 H (0-5) /hpf Urine WBC Clumps Few H (None) /hpf Amorphous Sediment Occasional H (None) /hpf Urine Bacteria Rare H (None) /hpf Urine Mucus Rare H (None) /hpf CT Scan - head: report reviewed Assessment and Plan (1) Altered mental status Narrative/Plan: CT brain without is neg for malignancy. She is on abx for UTI and she is being hydrated as this is suspected to be the cause of her altered mental status Current Visit: Yes Status: Acute Priority: High Code(s): R41.82 - ALTERED MENTAL STATUS, UNSPECIFIED SNOMED Code(s): 217968409 (2) Metastatic colon cancer in female Narrative/Plan: Being treated on a phase I clinical trial at [facility] in [place]. She has not been followed locally recently. Patient is not able to give me much more information than that today. During a phase I trial given the investigators in June to be able to give me a whole lot of information. Recommend that patient or at least her family take records of hospitalizations to her appointments. She will follow-up in [place] as scheduled. Current Visit: Yes Status: Chronic Priority: Medium Code(s): C18.9 - MALIGNANT NEOPLASM OF COLON, UNSPECIFIED SNOMED Code(s): 855852014 Plan: Doctor attests: I performed a history and physical examination of this patient, developed impression and plan of care. Discussed with dictator. I agree with dictators note, documented as a scribe.
--- NOTE | 2020-05-31 19:57 | P.PN ---
Subjective Progress Note Date: 05/31/20 Patient was seen at bedside and the she said that that she wants to go home and she feels well. Per the patient's nurse, she states that the patient daughter wants her to be home. Objective - Vital Signs Vital signs: Vital Signs Temp 97.9 F 05/31/20 12:20 Pulse 81 05/31/20 12:20 Resp 16 05/31/20 12:20 BP 125/69 05/31/20 12:20 Pulse Ox 90 L 05/31/20 16:37 Intake & Output 05/31/20 05/31/20 06/01/20 06:59 18:59 06:59 Output Total 927 Balance -927 Weight 49.895 kg Output: Urine 500 Post Void Residual 427 Other: Voiding Method Diaper Diaper Incontinent Incontinent # Voids 1 1 - Exam GENERAL: The patient is lying in bed and was agitated that she got the wrong food. CHEST: The heart rate is regular rate rhythm. No murmurs to auscultation. LUNG: Clear to auscultation bilaterally no wheezing noted throughout. Not labored breathing. ABDOMEN/GI: Bowel sounds present in all 4 quadrants. No tenderness to palpation throughout. NEUROLOGICAL: Higher mental function: The patient is awake, alert, oriented to self, place and time. Patient is following commands. No aphasia and no neglect. Cranial nerves: The pupils are round, equal and reactive to light and accommodation. Visual stevens are full to confrontation throughout. Extraocular movement is intact no nystagmus is noted. Facial sensation is normal to touch throughout. The facial strength is normal throughout. Hearing is normal bilaterally to hand rub. Tongue is midline and moved [id number] without any difficulty. No dysarthria is noted. Shoulder shrug is normal bilaterally. Motor: Gait is defered. The strength is 5 over 5 throughout. Normal tone and bulk. Cerebellum: Normal finger to nose bilaterally. Sensation: Sensation is normal to touch throughout. Reflexes (right/left): 1+ Plantars are downgoing bilaterally. - Labs CBC & Chem 7: 05/31/20 07:33 05/31/20 07:33 Labs: Abnormal Lab Results - Last 24 Hours (Table) 05/31/20 05/31/20 05/31/20 Range/Units 07:33 07:33 09:05 RBC 3.66 L (3.80-5.40) m/uL Hgb 11.3 L (11.4-16.0) gm/dL MCV 101.4 H (80.0-100.0) fL MCHC 30.4 L (31.0-37.0) g/dL Plt Count 63 L (150-450) k/uL Chloride 118 H (98-107) mmol/L Carbon Dioxide 20 L (22-30) mmol/L BUN 25 H (7-17) mg/dL Glucose 113 H (74-99) mg/dL Calcium 7.7 L (8.4-10.2) mg/dL Delta Bilirubin 0.6 H (0.0-0.2) mg/dL Alkaline Phosphatase 135 H (38-126) U/L Total Protein 5.6 L (6.3-8.2) g/dL Albumin 2.6 L (3.5-5.0) g/dL Urine Appearance Cloudy H (Clear) Urine Protein 1+ H (Negative) Ur Leukocyte Esterase Trace H (Negative) Urine WBC 6 H (0-5) /hpf Amorphous Sediment Rare H (None) /hpf Urine Bacteria Rare H (None) /hpf Urine Mucus Rare H (None) /hpf Assessment and Plan Assessment: Altered mental status, likely due to delirium with mild encephalopathy seizure disorder metastatic colon cancer large 3 cm left lower lobe mass suspicious of malignancy. Plan: -Continue Keppra 750 mg twice a day as well as Tegretol 200 mg 3 times a day. -Keppra level: pending Carbamazepine level <3. On the last the visits her carbamazepine level was less than 3 and that was on 04/20/2020. Patient states she takes her medication. -I spoke with the patient's daughter (Kimberlyn) and that she stated that she was to hold off on getting MRI of the brain with and without (on last admission Oncology ordered it but was not done since patient wanted to be discharged). I also don't believe that the MRI the brain with and without is needed at this time as an inpatient. Patient is back to her baseline and there is no focality my examination. If this is needed we can consider getting as an outpatient. Unless oncology and desires to get as an inpatient then we'll leave it up to them. EEG is not indicated at this point the patient is back to her baseline. Currently the patient is on ceftriaxone for possible degenerative tract infecti on recommend avoiding cephalosporin which can cause encephalopathy is possible. The patient as well as her daughter were notified that the patient is to follow up with a neurologist as an outpatient. The patient daughter wants the patient to be discharged home [facility] Neuro-hospitalist Time with Patient: Greater than 30
--- NOTE | 2020-06-01 00:54 | P.DS ---
Providers Date of admission: 05/30/20 13:00 Attending physician: Giancarlo Bangura Consults: 05/30/20 12:57 Consult Physician Urgent Consulting Provider: Rama Muñiz Consult Reason/Comments: History of colon cancer Do you want consulting provider notified?: Yes 05/30/20 14:26 Consult Physician Urgent Consulting Provider: Jarad Seth Consult Reason/Comments: ams Do you want consulting provider notified?: Yes Primary care physician: Vladislav Soto MD Hospital Course: Diagnoses: Altered mental status, mostly due to Metabolic encephalopathy, resulting patient is back to her baseline prior to discharge Recurrent Acute urinary tract infection, a due to mass effect on the dome of the bladder secondary to a midline 15.9 cm complex cystic mass with internal soft tissue components and septations. Colon cancer with metastasis to the lung, stage IV History of seizure, doubt other episodes of seizure As per daughter patient is full code Hypertension Hospital course: This is a pleasant 74 years old female with past medical history of colon cancer and seizure disorders with metastasis to the lung, hypertension, she has history of surgical resection of the colon about 2 years ago, she follows up with [facility] for clinical trial for chemotherapy, last chemotherapy was on Thursday. As per daughter at bedside this is the fourth admission in one month and a half with altered mental status, he she thinks it was due to UTI issues time she was treated with antibiotics and hydration her mentation improves and would be discharged. presents because of altered mental status. After she got the chemo therapy on Thursday, Thursday she felt a little weak however on Thursday she become confused and lethargic and she was not taking her seizure medication and her level was low when checked in the hospital. On admission patient was found to have UTI and dehydration, she was treated with IV fluid and ceftriaxone and she patient showed interval improvement and patient is fully awake and orie nted and back to her baseline. Neurologist evaluated the patient, no further workup and they cleared her for discharge Also patient did not have urinary symptoms on the day of discharge. No dysuria, no urgency, slight increase in frequency probably due to the mass effect. Patient was adamant to be discharged today. I talked to her daughter Kimberlyn at bedside she wanted to take her mother home today. I discussed the problems and the findings with her daughter including the large cystic mass on the top of the urinary bladder, she told me there were were about this mass but they thought it was only 11 cm last time it was checked. The patient asked to provide her with a copy of the ultrasound which was provided to her and wanted to take it to her oncologist at [facility]. Patient had no other symptoms upon discharge Patient thought she would need oxygen upon discharge because of her lung metastasis as Chest x-ray shows stable mass in the left lower lobe and additional density in the right lower lobe, masslike density in the right medial lung base, however when oxygen was checked and it was more than 90% and she did not qualify for oxygen therapy upon discharge, also patient risks non-ambulatory due to her general deconditioning so ambulatory oxygen was not checked or needed Patient will be discharged on 10 days of cefepime due to her recurrent UTI Problems and management plan were discussed with the patient and he verbalized understanding and acceptance Patient was found stable and can be discharged home however he needs follow-up as an outpatient. Patient was instructed to follow up with PCP Dr. Charles Loomis within one week and patient agrees. Also patient was instructed to follow up with her neurologist Dr. Brown within one to 2 weeks and she agrees. And fol low-up with her oncologist at [facility] within one week and she agrees However it was felt that the prognosis is very poor given her advanced cancer with metastasis and the finding of a large abdominal mass as well as, patient and daughter are made aware of the best prognosis Physical exam -Gen: patient is a AAOx3, no distress. Generally weak and emaciated CVS: S1-S2, RRR, no murmur Lungs: B/L CTA, no wheezing Abdomen: soft, no distention, no tenderness, positive bowel sounds Extremity: no leg edema or induration Time spent more than 35 minutes Plan - Discharge Summary Discharge Rx Participant: No New Discharge Prescriptions: New Cefuroxime Axetil [Ceftin] 500 mg PO BID 10 Days #10 tab Continue levETIRAcetam [Keppra] 500 mg PO BID Diphenox-Atrop 2.5-0.025 mg [Lomotil] 1 tab PO QID PRN PRN Reason: Loose Stool levETIRAcetam [Keppra] 250 mg PO BID carBAMazepine [TEGretol] 200 mg PO TID Levothyroxine Sodium [Tirosint] 75 mcg PO DAILY Discontinued Ciprofloxacin HCl [Cipro] 500 mg PO Q12HR Discharge Medication List Diphenox-Atrop 2.5-0.025 mg [Lomotil] 1 tab PO QID PRN 04/04/19 [History] carBAMazepine [TEGretol] 200 mg PO TID 04/04/19 [History] levETIRAcetam [Keppra] 250 mg PO BID 04/04/19 [History] levETIRAcetam [Keppra] 500 mg PO BID 04/04/19 [History] Levothyroxine Sodium [Tirosint] 75 mcg PO DAILY 05/30/20 [History] Cefuroxime Axetil [Ceftin] 500 mg PO BID 10 Days #10 tab 05/31/20 [Rx] Follow up Appointment(s)/Referral(s): Vladislav Soto MD [Primary Care Provider] - 06/05/20 1:00 pm Tal Brown DO [STAFF PHYSICIAN] - 1 Week (Please call office to set up appt. time and date.) Patient Instructions/Handouts: Cefuroxime (By mouth), Dehydration (DC), Urinary Tract Infection in Women (DC), Fall Prevention for Older Adults (DC), Altered Mental Status (GEN) Activity/Diet/Wound Care/Special Instructions: Per Dr. Seth with Neurology - patient needs to follow-up with Neurologist outpatient. follow up with your [facility] within one week ,please call and make appointment. heart healthy diet. activity is limited till you see your doctor. Discharge Disposition: HOME SELF-CARE
== END 2020-05-31 17:22 | disposition home or self-care (01) ==
LOC: EC 10:32 → 6NMEDSUR 13:00
PROVIDERS: ADMIT Internal Medicine; ATTEND Internal Medicine
DX: G93.41 Metabolic encephalopathy (principal); R41.82 Altered mental status, unspecified; E86.0 Dehydration; N39.0 Urinary tract infection, site not specified; N32.89 Other specified disorders of bladder; C18.9 Malignant neoplasm of colon, unspecified; C78.00 Secondary malignant neoplasm of unspecified lung; I10 Essential (primary) hypertension; E07.9 Disorder of thyroid, unspecified; D69.6 Thrombocytopenia, unspecified; G40.909 Epilepsy, unspecified, not intractable, without status epilepticus; Z91.128 Patient's intentional underdosing of medication regimen for other reason; Z90.49 Acquired absence of other specified parts of digestive tract; Z92.21 Personal history of antineoplastic chemotherapy; R00.0 Tachycardia, unspecified; I95.9 Hypotension, unspecified; F32.9 Major depressive disorder, single episode, unspecified; Z87.891 Personal history of nicotine dependence; Z80.9 Family history of malignant neoplasm, unspecified; Z82.0 Family history of epilepsy and other diseases of the nervous system; Z87.01 Personal history of pneumonia (recurrent); Z98.42 Cataract extraction status, left eye; Z98.41 Cataract extraction status, right eye; Z96.1 Presence of intraocular lens; Z98.890 Other specified postprocedural states; Z79.899 Other long term (current) drug therapy
CPT/HCPCS: 96376; 96361 ×3; 96365; 96366 ×2; 96367; 96375; 99285; 36415; 93005; 80156; 80053; 80048; 80076; 80177; 83605; 84484; 85025 ×2; 85610; 85730; 81001 ×2; 80306; 71046; 76770; 70450; G0378 ×2; J2060; J0696 ×2; J1953 ×2

== ENCOUNTER 2021-06-25 12:10 | Day surgery (SDC) | payer MEDICARE, OTHER ==
[2021-06-25 13:02] LABS: Mean Platelet Volume 7.8; Platelet Count 328 k/uL (150-450)
[2021-06-25 13:20] VITALS: TEMP 98.1
[2021-06-25 13:21] LABS: Prothrombin Time 10.8 sec (9.0-12.0)
[2021-06-25 13:45] VITALS: RESP 16
[2021-06-25 14:21] VITALS: BP 131/71; PULSE 80
--- NOTE | 2021-06-25 14:36 | US ---
EXAMINATION TYPE: US paracentesis abd w/image DATE OF EXAM: 06/25/2021 COMPARISON: NONE HISTORY: Ascites. PROCEDURE: Maximal barrier technique was utilized. The skin overlying a suitable pocket of fluid was localized with ultrasound and the overlying skin was prepped and draped. Ultrasound was utilized with sterile technique. Lidocaine was used for local anesthesia and a skin ursula made with a scalpel. Catheter was advanced under direct ultrasound guidance into a suitable pocket of fluid and approximately 1.5 liter s of serous fluid were removed. Catheter was withdrawn and hemostasis achieved. There is no immedia te complication; the patient is discharged in stable condition. IMPRESSION: STATUS POST ULTRASOUND GUIDED PARACENTESIS FOR PALLIATION OF ASCITES. THIS PROCEDURE WA S PERFORMED BY THE UNDERSIGNED.
== END 2021-06-25 14:18 | disposition home or self-care (01) ==
LOC: RADPROMAIN 12:10
PROVIDERS: ATTEND Internal Medicine Hematology & Oncology
DX: R18.8 Other ascites (principal)
CPT/HCPCS: 85049; 85610; 49083; J1642